=== PATIENT | female | born 1990 | race Caucasian/White ===

== ENCOUNTER 2016-12-26 21:38 | Emergency (ER) | payer OTHER ==
[2016-12-26] MEDS ORDERED: ONDANSETRON 4 MG TAB.RAPDIS PO ONE (23:23)
[2016-12-27 00:17] LABS: ABSOLUTE EOSINOPHILS # (AUTO) 0.1 10^3/uL (0.0-0.6); ABSOLUTE LYMPHOCYTES (AUTO) 2.6 10^3/uL (0.5-4.7); ABSOLUTE MONOCYTES (AUTO) 0.6 10^3/uL (0.1-1.4); ABSOLUTE NEUT (AUTO) 9.4 10^3/uL (1.7-8.2); APPEARANCE,URINE TURBID; BASOPHILS % (AUTO) 0.3 % (0-2); BILIRUBIN,URINE NEGATIVE (NEGATIVE); EOSINOPHILS % (AUTO) 1.1 % (0-6); GLUCOSE, URINE NEGATIVE (NEGATIVE); HEMATOCRIT 40.7 % (36.0-47.0); HEMOGLOBIN 14.1 g/dL (12.0-15.5); HGB HCT DIFFERENCE 1.6; KETONES,URINE 80 mg/dL (NEGATIVE); LEUKOCYTE ESTERASE,URINE MODERATE (NEGATIVE); LYMPHOCYTES % (AUTO) 20.2 % (13-45); MEAN CORPUSCULAR HEMOGLOBIN 30.5 pg (27.0-33.4); MEAN CORPUSCULAR HGB CONC 34.6 g/dL (32.0-36.0); MEAN CORPUSCULAR VOLUME 88 fl (80-97); NITRITE,URINE NEGATIVE (NEGATIVE); PROTEIN,URINE 100 mg/dL (NEGATIVE); RED BLOOD COUNT 4.62 10^6/uL (3.72-5.28); SEGMENTED NEUTROPHILS % (AUTO) 73.4 % (42-78); URINE SPECIFIC GRAVITY 1.028; UROBILINOGEN,URINE NEGATIVE mg/dL (<2.0); WHITE BLOOD COUNT 12.7 10^3/uL (4.0-10.5)
[2016-12-27 00:24] LABS: ALANINE AMINOTRANSFERASE 23 U/L (9-52); ALBUMIN 4.6 g/dL (3.5-5.0); ALKALINE PHOSPHATASE 66 U/L (38-126); ANION GAP 11 (5-19); ASPARTATE AMINO TRANSFERASE 19 U/L (14-36); BILIRUBIN,TOTAL 1.2 mg/dL (0.2-1.3); BLOOD UREA NITROGEN 7 mg/dL (7-20); CALCIUM 10.1 mg/dL (8.4-10.2); CARBON DIOXIDE 24 mmol/L (22-30); CHLORIDE 103 mmol/L (98-107); CREATININE RESULT 0.64 mg/dL (0.52-1.25); GLUCOSE 88 mg/dL (75-110); POTASSIUM 3.5 mmol/L (3.6-5.0); SODIUM 138.3 mmol/L (137-145); TOTAL PROTEIN 7.6 g/dL (6.3-8.2)
[2016-12-27] MEDS ORDERED: PROMETHAZINE HCL 25 MG TABLET PO ONE (04:42)
[2016-12-27] MEDS ORDERED: CEFTRIAXONE 1 GM/D5W RTU 50 ML IV ONE (04:44)
[2016-12-27] MEDS ORDERED: NORMAL SALINE 1000 ML 1,000 ML IV ONE (04:45)
[2016-12-27] MEDS ORDERED: DIPHENHYDRAMINE HCL 25 MG CAPSULE PO ONE (04:45)
--- NOTE | 2016-12-27 04:54 | ER Document Report ---
ED GI/ - General Chief Complaint: Nausea/Vomiting Stated Complaint: ABDOMINAL PAIN W/ Time seen by provider: 04:49 Mode of Arrival: Ambulatory Information source: Patient Notes: 26-year-old female presents to ED for pelvic pain 11 weeks with nausea and vomiting and headache. She states the nausea and vomiting is worse than her normal morning sickness the headache is typical of her migraines and she's had it for 3 days but has not taken anything for it. Her OB advised her not to take her Imitrex due to her patient states she is a high-risk and had a miscarriage in third trimester last time. Patient states she's also had a poor appetite has not been able to drink since Monday. She also states she has a thick white discharge but was tested for STDs and wet mount 2 weeks ago. Requesting a ultrasound and a test for her discharge today. Patient has a UTI according to the labs done before I saw the patient. TRAVEL OUTSIDE OF THE [place] IN LAST 30 DAYS: No - HPI Patient complains to provider of: Pelvic pain, , Vaginal discharge, Vomiting, Other - Headache Onset: Last week Timing/Duration: Gradual Quality of pain: Achy, Dull, Sharp Severity at maximum: Moderate Severity in ED: Moderate Pain Level: 4 Location: Pelvis Vaginal bleeding (Compared to normal period): None LMP: 11 weeks : 3 Para: 1 heart tones (bpm): 177 EDC: 07/21/17 OB ultrasound done: Yes vitamins taken: Yes Associated symptoms: Nausea, Odor, Vaginal discharge, Vomiting, Other - Pelvic pain Exacerbated by: Denies Relieved by: Denies Recently seen / treated by doctor: Yes - Related Data Allergies/Adverse Reactions: aspirin [Aspirin] Allergy (Verified 12/26/16 23:19) Anaphylaxis morphine [Morphine] Allergy (Verified 12/26/16 23:19) Anaphylaxis Past Medical History - General Information source: Patient - Social History Smoking Status: Never Smoker Cigarette use (# per day): No Chew tobacco use (# tins/day): No Smoking Education Provided: No Frequency of alcohol use: None Drug Abuse: None Lives with: Spouse/Significant other Family History: Reviewed & Not Pertinent Patient has suicidal ideation: No Patient has homicidal ideation: No - Past Medical History Cardiac Medical History: Reports: None Pulmonary Medical History: Reports: None EENT Medical History: Reports: None Neurological Medical History: Reports: Hx Migraine Endocrine Medical History: Reports: None Renal/ Medical History: Reports: None Malignancy Medical History: Reports: None GI Medical History: Reports: None Musculoskeltal Medical History: Reports None Skin Medical History: Reports None Psychiatric Medical History: Reports: None Traumatic Medical History: Reports: None Infectious Medical History: Reports: None Past Surgical History: Reports: Hx Orthopedic Surgery - right clavicle - Immunizations Immunizations up to date: Yes Hx Diphtheria, Pertussis, Tetanus Vaccination: Yes Review of Systems - Review of Systems Constitutional: No symptoms reported EENT: No symptoms reported Cardiovascular: No symptoms reported Respiratory: No symptoms reported Gastrointestinal: Nausea, Vomiting Genitourinary: No symptoms reported Female Genitourinary: , Vaginal discharge, Vaginal odor, Other - Pelvic pain Musculoskeletal: No symptoms reported Skin: No symptoms reported Hematologic/Lymphatic: No symptoms reported Neurological/Psychological: No symptoms reported -: Yes All other systems reviewed and negative Physical Exam - Vital signs Vitals: Temp Pulse Resp BP 97.9 F 88 18 98/66 L 12/26/16 22:55 12/26/16 22:55 12/26/16 22:55 12/26/16 22:55 Interpretation: Normal - General General appearance: Appears well, Alert - HEENT Head: Normocephalic, Atraumatic Eyes: Normal Pupils: PERRL Visual houser normal: Yes Ears: Normal External canal: Normal Tympanic membrane: Normal Sinus: Normal Nasal: Swelling, Clear rhinorrhea Mouth/Lips: Normal Mucous membranes: Normal Pharynx: Normal Neck: Normal - Respiratory Respiratory status: No respiratory distress Chest status: Nontender Breath sounds: Normal Chest palpation: Normal - Cardiovascular Rhythm: Regular Heart sounds: Normal auscultation Murmur: No - Abdominal Inspection: Normal Distension: No distension Bowel sounds: Normal Tenderness: Tender - Pelvic tenderness Organomegaly: No organomegaly - Genitourinary External exam: Normal Speculum exam: Cervix closed, Vaginal discharge Vaginal bleeding: None Bimanuel exam: Adnexal tenderness - Back Back: Normal, Nontender - Extremities General upper extremity: Normal inspection, Nontender, Normal color, Normal ROM , Normal temperature General lower extremity: Normal inspection, Nontender, Normal color, Normal ROM , Normal temperature, Normal weight bearing. No: Irma's sign - Neurological Neuro grossly intact: Yes Cognition: Normal Orientation: AAOx4 Edel Coma Scale Eye Opening: Spontaneous [place] Coma Scale Verbal: Oriented Edel Coma Scale Motor: Obeys Commands [place] Coma Scale Total: 15 Speech: Normal Motor strength normal: LUE, RUE, LLE, RLE Sensory: Normal - Psychological Associated symptoms: Normal affect, Normal mood - Skin Skin Temperature: Warm Skin Moisture: Dry Skin Color: Normal Course - Re-evaluation Re-evalutation: 12/27/16 09:04 Patient was treated with IV fluids and Rocephin 1 g IV and azithromycin and Flagyl. Her pelvic exam showed bacterial vaginosis and Chlamydia. Her first UA showed possible UTI so a repeat urine was done which did not show a UTI. Patient was discharged home with instructions to follow-up with OB Talia to ensure that her chlamydia cleared up. - Vital Signs Vital signs: Temp Pulse Resp BP Pulse Ox 97.5 F 84 18 125/87 H 97 12/27/16 07:01 12/27/16 07:01 12/27/16 07:01 12/27/16 07:01 12/27/16 07:01 - Laboratory Result Diagrams: 12/26/16 23:53 12/26/16 23:53 Laboratory results interpreted by me: 12/26/16 12/26/16 12/26/16 23:53 23:53 23:53 WBC 12.7 H Absolute Neutrophils 9.4 H Potassium 3.5 L Beta HCG, Quant Urine Protein 100 H Urine Ketones 80 H Ur Leukocyte Esterase MODERATE H Urine Ascorbic Acid 40 H Urine HCG, Qual POSITIVE H Chlamydia DNA (PCR) 12/26/16 12/27/16 12/27/16 23:53 05:05 05:05 WBC Absolute Neutrophils Potassium Beta HCG, Quant 30127.00 H Urine Protein 30 H Urine Ketones 80 H Ur Leukocyte Esterase Urine Ascorbic Acid 40 H Urine HCG, Qual Chlamydia DNA (PCR) DETECTED H Discharge - Discharge Clinical Impression: Pelvic pain affecting in first trimester, antepartum, Dehydration during , Chlamydia infection affecting in first trimester Migraine Qualifiers: Migraine type: unspecified Status migrainosus presence: without status migrainosus Intractability: not intractable Qualified Code(s): G43.909 - Migraine, unspecified, not intractable, without status migrainosus Condition: Stable Disposition: HOME, SELF-CARE Instructions: Pelvic Pain in ([facility]) Additional Instructions: HEADACHE: The physician does not feel that the headache you are experiencing has a serious underlying cause. Most headaches are due to emotional stress, with resultant muscle tension (tension headache). Occasionally, headaches are secondary to changes in the blood vessels of the scalp (vascular headache and migraine headache). Sometimes, a headache is the first symptom of another developing illness, such as a viral infection. You have no evidence of stroke, bleeding, meningitis, or other serious cause of your headache. The treatment of headaches varies with the severity and cause of the pain. Not all headaches need pain shots. In fact, there is evidence that using narcotics for headaches may make them worse in the long run. The physician will determine the therapy that's in your best interest. If you develop a fever, if the headache is different from any you've previously experienced, or if the headache progressively worsens, then call your physician at once or go to the emergency room. VAGINOSIS, BACTERIAL: Your exam shows you have bacterial vaginosis. This condition is due to an overgrowth of bacteria in the vagina. Symptoms may include vaginal itching or pain, a smelly discharge, and sometimes burning with urination. Normally this is not transmitted by sexual contact. Vaginosis can be treated with oral or topical antibiotics. Metronidazole ( Flagyl) pills are usually effective. Topical vaginal creams include Cleocin and Metro-Gel. You should avoid sexual contact until your symptoms are all better. Call the doctor if you develop pelvic pain, fever, or problems with urination, or if you don't improve as expected. Dehydration Dehydration can result from vomiting or diarrhea, fever, or decreased intake of fluids. If severe, hospitalization and intravenous fluids may be required. Most cases are treated at home with fluids by mouth. For the next 24 hours, drink lots of clear fluids. In mild cases, this can be soda pop or sports drinks. For more severe dehydration, the doctor may recommend special fluids such as Pedialyte or Lytren. Try to get three liters ( 3 quarts) of fluid per day. If vomiting occurs, continue to drink the fluids frequently (every 15 to 20 minutes), but in small amounts (one or two ounces). Depending on the type of dehydration, the doctor may prescribe antinausea medicine or potassium replacements. Call the doctor or return for re-examination if you become progressively weak, vomit repeatedly, or have other new symptoms. METRONIDAZOLE: Metronidazole (Flagyl) has been prescribed. This medication is used to kill a type of bacteria called anaerobes, and protozoan parasites such as trichomonas and Giardia. Flagyl often causes a metallic taste in the mouth and mild nausea. Do not use alcohol in any form with Flagyl (including alcohol in medication elixirs). Flagyl interacts with alcohol to cause flushing, palpitations, headache, stomach cramps, and vomiting. Do not use Flagyl if you are taking Antabuse (disulfiram). Call the doctor at once if you develop rash, shortness of breath, itching, or lightheadedness. USE OF DIPHENHYDRAMINE: Diphenhydramine (Benadryl) is an antihistamine and has been recommended to help treat your headache and to prevent side effects of other medications used to treat headaches. The medication can be repeated four times daily. Age Elixir (12.5 mg/tsp) 25 mg pill adult 1-2 tabs Antihistamines may cause drowsiness, especially with the first dose. Do not operate machinery or drive while under the effects of the medication. Do not combine the medication with alcohol, or with any other medication without talking to your doctor. Intravenous (IV) Fluids As part of your care today, you received intravenous (IV) fluids. IV fluids are administered to patients who are dehydrated or to those who have certain chemical (electrolyte) abnormalities that need correcting. ANTINAUSEA MEDICATION: You have been given a medication to suppress nausea and vomiting. This type of medication can be given as a shot, pill, or suppository. It will usually last for many hours. Pills and shots usually last six to eight hours, suppositories last about 12 hours. For the typical illness, only one or two doses of the medication may be necessary. Mild lightheadedness may occur. This type of medicine can cause drowsiness. Do not drive or operate dangerous machinery while under its influence. Do not mix with alcohol. See your doctor at once if you have muscle spasms or tightness, or uncontrollable motions (particularly of the neck, mouth, or jaw). Persistent vomiting or severe lightheadedness should also be evaluated by the physician. Acetaminophen Acetaminophen may be taken for pain relief or fever control. It's much safer than aspirin, offering a wider range of "safe" dosages. It is safe during . Some brand names are Tylenol, Panadol, Datril, Anacin 3, Tempra, and Liquiprin. Acetaminophen can be repeated every four hours. The following are maximum recommended dosages: WEIGHT Dose Drops Elixir Chewable( 80mg) (LBS.) drprs=droppers tsp=teaspoon 6 40 mg .4 ml (1/2) 6-11 80 mg .8 ml (full) 1/2 tsp 1 tab 12-16 120 mg 1 1/2 drprs 3/4 tsp 1 1/2 tabs 17-23 160 mg 2 drprs 1 tsp 2 tabs 24-30 240 mg 3 drprs 1 1/2 tsp 3 tabs 30-35 320 mg 2 tsp 4 tabs 36-41 360 mg 2 1/4 tsp 4 1 /2 tabs 42-47 400 mg 2 1/2 tsp 5 tabs 48-53 480 mg 3 tsp 6 tabs 54-59 520 mg 3 1/4 tsp 6 1 /2 tabs 60-64 560 mg 3 1/2 tsp 7 tabs 65-70 600 mg 3 3/4 tsp 7 1 /2 tabs 71-76 640 mg 4 tsp 8 tabs 77-82 720 mg 4 1/2 tsp 9 tabs 83-88 800 mg 5 tsp 10 tabs >89 pounds or adults 650 mg to 900 mg Acetaminophen can be repeated every four hours. Maximum daily dose not to exceed 4000 mg. These maximum recommended dosages are slightly higher than the dosages written on the product container, but these dosages are very safe and well below the toxic dosage for acetaminophen. FOLLOW-UP CARE: If you have been referred to a physician for follow-up care, call the physician s office for an appointment as you were instructed or within the next two days. If you experience worsening or a significant change in your symptoms, notify the physician immediately or return to the Emergency Department at any time for re-evaluation. Prescriptions: Metronidazole [Flagyl 500 mg Tablet] 500 mg PO BID #14 tablet
[2016-12-27 05:52] LABS: APPEARANCE,URINE SLIGHTLY-CLOUDY; BILIRUBIN,URINE NEGATIVE (NEGATIVE); GLUCOSE, URINE NEGATIVE (NEGATIVE); KETONES,URINE 80 mg/dL (NEGATIVE); LEUKOCYTE ESTERASE,URINE NEGATIVE (NEGATIVE); NITRITE,URINE NEGATIVE (NEGATIVE); PROTEIN,URINE 30 mg/dL (NEGATIVE); URINE SPECIFIC GRAVITY 1.031; UROBILINOGEN,URINE NEGATIVE mg/dL (<2.0)
[2016-12-27] MEDS ORDERED: PYRIDOXINE HCL INJ 100 MG/1 ML VIAL IM ONE (06:12)
[2016-12-27] MEDS ORDERED: METRONIDAZOLE 500 MG TABLET PO ONE (06:36)
[2016-12-27] MEDS ORDERED: PYRIDOXINE HCL INJ 100 MG/1 ML VIAL ONE (06:48)
[2016-12-27 06:55] LABS: CHLAM PCR DETECTED (NOT DETECT)
[2016-12-27 07:02] VITALS: BP 125/87
[2016-12-27] MEDS ORDERED: AZITHROMYCIN 250 MG TABLET PO ONE (07:06)
== END 2016-12-27 07:02 | disposition home or self-care (01) ==
LOC: ER 21:38
DX: O26.91 Pregnancy related conditions, unspecified, first trimester (principal); G43.909 Migraine, unspecified, not intractable, without status migrainosus; O98.811 Other maternal infectious and parasitic diseases complicating pregnancy, first trimester; E86.0 Dehydration; Z3A.11 11 weeks gestation of pregnancy; Z88.6 Allergy status to analgesic agent
CPT/HCPCS: 99284; 96372; 96365; 36415; 87086; 87210; 84702; 85025; 81025; 87088; 80053; 81001; 87491; 87591; 76801; S0119; J3415; J0696

== ENCOUNTER 2017-02-08 11:16 | Emergency (ER) | payer OTHER ==
--- NOTE | 2017-02-08 12:13 | ER Document Report ---
ED Medical Screen (RME) - General Chief Complaint: Vaginal Bleeding Stated Complaint: VAGINAL BLEEDING Notes: This 26-year-old female who is and Rh- is presently 17 weeks . During the night she started some vaginal bleeding. She has suprapubic and infra-umbilical discomfort. She has been admitted for hyperemesis in the past and had similar discomfort at that time with all the vomiting. She has not had a Rho-jaspal injection for this yet. I have greeted and performed a rapid initial assessment of this patient. A comprehensive ED assessment and evaluation of the patient, analysis of test results and completion of the medical decision making process will be conducted by additional ED providers. TRAVEL OUTSIDE OF THE [place] IN LAST 30 DAYS: No - Related Data Allergies/Adverse Reactions: aspirin [Aspirin] Allergy (Verified 02/08/17 11:36) Anaphylaxis morphine [Morphine] Allergy (Verified 02/08/17 11:36) Anaphylaxis Home Medications: Current Home Medications Vit/Iron Fumarate/FA [ Tablet] 1 each PO DAILY 02/08/17 [ History] Past Medical History - General Last Menstrual Period: oct 07 - Past Medical History Cardiac Medical History: Denies: Hx Coronary Artery Disease, Hx Heart Attack, Hx Hypertension Pulmonary Medical History: Denies: Hx Asthma, Hx Bronchitis, Hx COPD, Hx Pneumonia Neurological Medical History: Reports: Hx Migraine. Denies: Hx Cerebrovascular Accident, Hx Seizures Renal/ Medical History: Denies: Hx Peritoneal Dialysis Musculoskeltal Medical History: Denies Hx Arthritis Past Surgical History: Reports: Hx Orthopedic Surgery - right clavicle. Denies : Hx Hysterectomy - Immunizations Immunizations up to date: Yes Hx Diphtheria, Pertussis, Tetanus Vaccination: Yes Physical Exam - Vital signs Vitals: Temp Pulse Resp BP Pulse Ox 97.5 F 78 16 108/62 100 02/08/17 11:38 02/08/17 11:38 02/08/17 11:38 02/08/17 11:38 02/08/17 11:38 Course - Vital Signs Vital signs: Temp Pulse Resp BP Pulse Ox 97.5 F 78 16 108/62 100 02/08/17 11:38 02/08/17 11:38 02/08/17 11:38 02/08/17 11:38 02/08/17 11:38
[2017-02-08 12:49] LABS: ABSOLUTE LYMPHOCYTES (AUTO) 1.2 10^3/uL (0.5-4.7); ABSOLUTE MONOCYTES (AUTO) 0.5 10^3/uL (0.1-1.4); ABSOLUTE NEUT (AUTO) 10.1 10^3/uL (1.7-8.2); BASOPHILS % (AUTO) 0.2 % (0-2); EOSINOPHILS % (AUTO) 0.4 % (0-6); HEMATOCRIT 36.9 % (36.0-47.0); HEMOGLOBIN 13.2 g/dL (12.0-15.5); HGB HCT DIFFERENCE 2.7; LYMPHOCYTES % (AUTO) 10.1 % (13-45); MEAN CORPUSCULAR HEMOGLOBIN 31.4 pg (27.0-33.4); MEAN CORPUSCULAR HGB CONC 35.7 g/dL (32.0-36.0); MEAN CORPUSCULAR VOLUME 88 fl (80-97); MONOCYTES % (AUTO) 4.1 % (3-13); RED BLOOD COUNT 4.19 10^6/uL (3.72-5.28); RED CELL DISTRIBUTION WIDTH 12.8 % (11.5-14.0); SEGMENTED NEUTROPHILS % (AUTO) 85.2 % (42-78); WHITE BLOOD COUNT 11.8 10^3/uL (4.0-10.5)
[2017-02-08 13:02] LABS: ALANINE AMINOTRANSFERASE 19 U/L (9-52); ALBUMIN 4.1 g/dL (3.5-5.0); ALKALINE PHOSPHATASE 67 U/L (38-126); ANION GAP 9 (5-19); ASPARTATE AMINO TRANSFERASE 19 U/L (14-36); BILIRUBIN,DIRECT 0.1 mg/dL (0.0-0.4); BLOOD UREA NITROGEN 7 mg/dL (7-20); CALCIUM 9.3 mg/dL (8.4-10.2); CARBON DIOXIDE 24 mmol/L (22-30); CHLORIDE 105 mmol/L (98-107); CREATININE RESULT 0.51 mg/dL (0.52-1.25); GLUCOSE 77 mg/dL (75-110); POTASSIUM 4.3 mmol/L (3.6-5.0); SODIUM 137.9 mmol/L (137-145)
--- NOTE | 2017-02-08 14:50 | ER Document Report ---
ED GI/ - General Chief Complaint: Vaginal Bleeding Stated Complaint: VAGINAL BLEEDING Information source: Patient TRAVEL OUTSIDE OF THE [place] IN LAST 30 DAYS: No - HPI Patient complains to provider of: , Vaginal bleeding Onset: This morning Severity at maximum: Moderate Notes: 02/08/17 14:45 Patient arrives with complaints of vaginal bleeding. The patient is a WITH 1 prior miscarriage. She is approximately 17 weeks . She is at this morning she woke up and noticed she was having vaginal bleeding and lower abdominal cramping. She denies any fevers. She denies any nausea vomiting or diarrhea. No injury. No dysuria or hematuria. She called her HAND TWISTER who directed her to the emergency department. She tells her she's had an ultrasound in the past at her OBs office which was unremarkable. She is O- blood type. She has had have RhoGAM in the past with prior miscarriage. She denies any chest pain, shortness of breath, numbness tingling weakness, no other complaints at this time. - Related Data Allergies/Adverse Reactions: aspirin [Aspirin] Allergy (Verified 02/08/17 11:36) Anaphylaxis morphine [Morphine] Allergy (Verified 02/08/17 11:36) Anaphylaxis Home Medications: Current Home Medications Vit/Iron Fumarate/FA [ Tablet] 1 each PO DAILY 02/08/17 [ History] Past Medical History - General Last Menstrual Period: oct 07 - Social History Smoking Status: Never Smoker Chew tobacco use (# tins/day): No Frequency of alcohol use: None Drug Abuse: None Family History: Reviewed & Not Pertinent Patient has suicidal ideation: No Patient has homicidal ideation: No - Past Medical History Cardiac Medical History: Denies: Hx Coronary Artery Disease, Hx Heart Attack, Hx Hypertension Pulmonary Medical History: Denies: Hx Asthma, Hx Bronchitis, Hx COPD, Hx Pneumonia Neurological Medical History: Reports: Hx Migraine. Denies: Hx Cerebrovascular Accident, Hx Seizures Renal/ Medical History: Denies: Hx Peritoneal Dialysis Musculoskeltal Medical History: Denies Hx Arthritis Past Surgical History: Reports: Hx Orthopedic Surgery - right clavicle. Denies : Hx Hysterectomy - Immunizations Immunizations up to date: Yes Hx Diphtheria, Pertussis, Tetanus Vaccination: Yes Review of Systems - Review of Systems -: Yes All other systems reviewed and negative Physical Exam - Vital signs Vitals: Temp Pulse Resp BP Pulse Ox 97.5 F 78 16 108/62 100 02/08/17 11:38 02/08/17 11:38 02/08/17 11:38 02/08/17 11:38 02/08/17 11:38 - General General appearance: Appears well, Alert - HEENT Head: Normocephalic, Atraumatic Eyes: Normal Pupils: PERRL Mouth/Lips: Normal Mucous membranes: Normal - Respiratory Respiratory status: No respiratory distress Breath sounds: Normal - Cardiovascular Rhythm: Regular Heart sounds: Normal auscultation Murmur: No - Abdominal Inspection: Gravid female Bowel sounds: Normal Tenderness: Tender - Lower abdomen. No: McBurney's point, Guarding, Rebound - Genitourinary External exam: Normal. No: Vesicles Speculum exam: Normal, Cervix closed. No: Vaginal discharge, Lesions, Products of conception, Vaginal lacerations Vaginal bleeding: None Bimanuel exam: Normal, Uterus enlarged - Back Back: Normal, Nontender. No: CVA tenderness - Extremities General upper extremity: Normal inspection, Nontender, Normal color, Normal ROM , Normal temperature General lower extremity: Normal inspection, Nontender, Normal color, Normal ROM , Normal temperature, Normal weight bearing. No: Irma's sign - Neurological Neuro grossly intact: Yes Cognition: Normal Orientation: AAOx4 [place] Coma Scale Eye Opening: Spontaneous [place] Coma Scale Verbal: Oriented [place] Coma Scale Motor: Obeys Commands [place] Coma Scale Total: 15 Speech: Normal Motor strength normal: LUE, RUE, LLE, RLE Sensory: Normal - Psychological Associated symptoms: Normal affect, Normal mood - Skin Skin Temperature: Warm Skin Moisture: Dry Skin Color: Normal Course - Re-evaluation Re-evalutation: 02/08/17 14:48 Patient's nontoxic. Stable vitals. The patient is approximately 17 weeks . This is her third , she's had one prior miscarriage. Patient states she did have some vaginal bleeding this morning. With associated lower abdominal cramping. Bleeding has since improved. Her pelvic exam shows no active bleeding and no old blood within the vaginal vault. No signs of infection. Lab work is unremarkable. She is O-, and will be given RhoGAM. Ultrasound shows a 16 week 3 day living without complication. The patient's vitals are stable. Patient will be discharged home at this time with instruction to take Tylenol as needed for pain. Follow- up with her HAND TWISTER at the next label point appeared full sooner for increased pain, fever, persistent vomiting, severe bleeding, or any further concerns. The patient's emergency department workup and current diagnosis were explained to the patient and or family. Follow-up instructions were provided. Medications if prescribed were discussed. Instructions for when to return to the emergency department including specific worrisome symptoms were discussed with the patient and/or family. - Vital Signs Vital signs: Temp Pulse Resp BP Pulse Ox 97.5 F 78 16 108/62 100 02/08/17 11:38 02/08/17 11:38 02/08/17 11:38 02/08/17 11:38 02/08/17 11:38 - Laboratory Result Diagrams: 02/08/17 12:28 02/08/17 12:28 Laboratory results interpreted by me: 02/08/17 02/08/17 02/08/17 12:28 12:28 12:28 WBC 11.8 H Seg Neutrophils % 85.2 H Lymphocytes % 10.1 L Absolute Neutrophils 10.1 H Creatinine 0.51 L Beta HCG, Quant 21634.00 H - Diagnostic Test Radiology reviewed: Image reviewed, Reports reviewed - Ultrasound shows a 16 week 3 day living intrauterine Discharge - Discharge Clinical Impression: Threatened miscarriage Condition: Stable Disposition: HOME, SELF-CARE Instructions: Rhogam ([facility]), Threatened Miscarriage ([facility]) Additional Instructions: Tylenol as needed for pain. Follow-up with your HAND TWISTER at the next available appointment. Follow-up sooner for increased pain, fever, persistent vomiting, severe bleeding, or any further concerns.
[2017-02-08 15:15] VITALS: BP 103/54
== END 2017-02-08 15:18 | disposition home or self-care (01) ==
LOC: ER 11:16
DX: O20.0 Threatened abortion (principal); O36.0920 Maternal care for other rhesus isoimmunization, second trimester, not applicable or unspecified; O26.892 Other specified pregnancy related conditions, second trimester; R10.30 Lower abdominal pain, unspecified; Z3A.16 16 weeks gestation of pregnancy; Z87.59 Personal history of other complications of pregnancy, childbirth and the puerperium; Z87.892 Personal history of anaphylaxis; Z88.6 Allergy status to analgesic agent; Z88.5 Allergy status to narcotic agent
CPT/HCPCS: 99284; 86900; 86901; 36415; 86850; 84702; 85025; 80053; 76805; J2790

== ENCOUNTER 2017-05-09 16:11 | Emergency (ER) | payer OTHER ==
[2017-05-09] MEDS ORDERED: PREDNISONE 20 MG TABLET PO ONE (16:28)
[2017-05-09] MEDS ORDERED: DIPHENHYDRAMINE HCL 50 MG CAPSULE PO ONE (16:28)
--- NOTE | 2017-05-09 16:34 | ER Document Report ---
ED Allergic Reaction - General Chief Complaint: Allergic Reaction Stated Complaint: POSSIBLE BUG BITE/ALLERGIC REACTION Time Seen by Provider: 05/09/17 16:28 Notes: Patient is a 26-year-old female who presents with right ankle swelling, pain and pruritus that started yesterday after she thinks she was bitten by an insect. She does not remember seeing the insect. She also began to feel throat scratchiness earlier today, but this has resolved. She says her BP is usually in the 90's/60's. She denies shortness of breath, hives, nausea, vomiting, stridor, difficulty swallowing, tongue swelling, fevers or calf tenderness. TRAVEL OUTSIDE OF THE [place] IN LAST 30 DAYS: No - Related Data Allergies/Adverse Reactions: aspirin [Aspirin] Allergy (Verified 02/08/17 11:36) Anaphylaxis morphine [Morphine] Allergy (Verified 02/08/17 11:36) Anaphylaxis Past Medical History - General Information source: Patient - Social History Smoking Status: Never Smoker Family History: Reviewed & Not Pertinent Patient has suicidal ideation: No Patient has homicidal ideation: No - Past Medical History Cardiac Medical History: Denies: Hx Coronary Artery Disease, Hx Heart Attack, Hx Hypertension Pulmonary Medical History: Denies: Hx Asthma, Hx Bronchitis, Hx COPD, Hx Pneumonia Neurological Medical History: Reports: Hx Migraine. Denies: Hx Cerebrovascular Accident, Hx Seizures Renal/ Medical History: Denies: Hx Peritoneal Dialysis Musculoskeltal Medical History: Denies Hx Arthritis Past Surgical History: Reports: Hx Orthopedic Surgery - right clavicle. Denies : Hx Hysterectomy - Immunizations Immunizations up to date: Yes Hx Diphtheria, Pertussis, Tetanus Vaccination: Yes Review of Systems - Review of Systems Notes: REVIEW OF SYSTEMS: CONSTITUTIONAL: -fevers, -chills EENT: -eye pain, -difficulty swallowing, -nasal congestion CARDIOVASCULAR:-chest pain, -syncope. RESPIRATORY: -cough, -SOB GASTROINTESTINAL: -abdominal pain, - nausea, -vomiting, -diarrhea GENITOURINARY: -dysuria, -hematuria MUSCULOSKELETAL: -back pain, -neck pain SKIN: +right ankle redness and swelling HEMATOLOGIC: -easy bruising or bleeding. LYMPHATIC: -swollen, enlarged glands. NEUROLOGICAL: -altered mental status or loss of consciousness, -headache, - neurologic symptoms PSYCHIATRIC: -anxiety, -depression. ALL OTHER SYSTEMS REVIEWED AND NEGATIVE. Physical Exam - Vital signs Vitals: Temp Pulse BP Pulse Ox 97.5 F 79 88/72 L 100 05/09/17 16:22 05/09/17 16:22 05/09/17 16:22 05/09/17 16:22 - Notes Notes: PHYSICAL EXAMINATION: GENERAL: Well-appearing, well-nourished and in no acute distress. HEAD: Atraumatic, normocephalic. EYES: Pupils equal round and reactive to light, extraocular movements intact, sclera anicteric, conjunctiva are normal. ENT: nares patent, oropharynx clear without exudates. Moist mucous membranes. NECK: Normal range of motion, supple without lymphadenopathy. No stridor. LUNGS: Breath sounds clear to auscultation bilaterally and equal. No wheezes rales or rhonchi. HEART: Regular rate and rhythm without murmurs ABDOMEN: Soft, nontender, normoactive bowel sounds. No guarding, no rebound. No masses appreciated. EXTREMITIES: Normal range of motion, no pitting or edema. No cyanosis. NEUROLOGICAL: Cranial nerves grossly intact. Normal speech, normal gait. Normal sensory and motor exams. PSYCH: Normal mood, normal affect. SKIN: Right lateral ankle with mild erythema and a small vesicle Course - Re-evaluation Re-evalutation: Patient appears well without any signs of anaphylaxis at this time. Unclear whether this is a localized allergic reaction or any early cellulitis. Will treat with doxycycline and Benadryl. After antihistamine and steroid, swelling has decreased. Instructed her to continue antihistamines for local allergic reaction from insect bite. This does not appear consistent with a black or brown recluse spider bite. BP improved to 114/76 after po fluids. Given strict return precautions and she understands. - Vital Signs Vital signs: Temp Pulse Resp BP Pulse Ox 97.5 F 79 88/72 L 100 05/09/17 16:22 05/09/17 16:22 05/09/17 16:22 05/09/17 16:22 Discharge - Discharge Clinical Impression: Rash Condition: Stable Disposition: HOME, SELF-CARE Additional Instructions: Take the full course of doxycycline in case this is a skin infection from an animal bite. You may take Benadryl to help with any itchiness. Return to the ER if you have worsening symptoms or any other concerns. ACUTE ALLERGIC REACTION: Your symptoms are due to an allergic reaction. Allergy can cause hives, swelling of the hands, feet, and face, hoarseness, and difficulty swallowing or breathing. It may be due to exposure to medication, animal dander, foods, infection, or insect bites. Medication is a common cause, even when prior use of this same medication caused no problems. Acute treatment may include adrenalin and antihistamines. Usually, the specific allergic agent can't be identified unless repeated episodes occur. Home treatment includes the following: (1) Stop any suspicious medications. This will be discussed with you. (2) Oral antihistamines for the next four to five days. Example, diphenhydramine (Benadryl) every four hours. (3) You may also use cimetidine (Tagamet), ranitidine (Zantac), or famotidine ( Pepcid) every four hours if diphenhydramine is not controlling itching and hives. (4) Avoid aspirin until the hives completely disappear. (5) Avoid hot baths or showers until the hives are completely gone. Call the doctor if faintness, difficulty swallowing, tightness in the chest , or wheezing occurs. STEROID MEDICATION: You have been given a medicine of the cortisone/steroid class. This medication is used to control inflammation or allergy. It is usually only given for a short period of time, until the acute process subsides. There are usually no side effects from short-term use of cortisone-like medications. Some persons feel an increased sense of well-being and are not sleepy at bedtime. Long-term use of cortisone medications is best avoided, unless required for a severe condition. If your condition does not remit, or relapses after the course of corticosteroid medication, you should consult your physician. ANTIHISTAMINES: An antihistamine has been given and/or prescribed to control your symptoms. Antihistamines are used for many reasons, including itching, watering eyes, runny nose, allergic swelling, hives, and insect stings. Antihistamines may cause drowsiness, especially with the first dose. Do not operate machinery or drive while under the effects of the medication. Other common side effects include dry mouth and eyes. In older persons, antihistamines can occasionally cause urinary retention, constipation, and trouble focusing the eyes. Do not combine the medication with alcohol, or with any other medication without talking to your doctor. USE OF DIPHENHYDRAMINE: The use of diphenhydramine (Benadryl) has been recommended to control allergic symptoms. The 25 mg strength is available over- the-counter, as well as the elixir. This antihistamine is used for many symptoms. It's useful for itching, watering eyes and nose, allergic swelling, hives, and insect stings. The medication can be repeated four times daily. Age Elixir (12.5 mg/tsp) 25 mg pill 2-3 yr 1/2 tsp 4-8 yr 1 tsp 9-14 yr 2 tsp one tab adult 1-2 tabs Antihistamines may cause drowsiness, especially with the first dose. Do not operate machinery or drive while under the effects of the medication. Do not combine the medication with alcohol, or with any other medication without talking to your doctor. FOLLOW-UP CARE: If you have been referred to a physician for follow-up care, call the physician s office for an appointment as you were instructed or within the next two days. If you experience worsening or a significant change in your symptoms, notify the physician immediately or return to the Emergency Department at any time for re-evaluation. CELLULITIS: You have an infection of your skin and underlying soft tissues called cellulitis. This is due to bacteria, which can enter through any break in the skin, or even through an irritated hair follicle. Untreated, cellulitis will usually worsen. Antibiotics are required. Usually, warm packs or warm soaks, and elevation of the infected area are recommended. You should start getting better within 24 to 36 hours. Most infections respond quickly to the right medication. Follow-up care is important, however, to check for abscess (boil) formation, unsuspected foreign body, or resistant infection. If you develop fever, chills, or if the area of infection is becoming rapidly more swollen or painful, call the doctor at once. ANTIBIOTIC THERAPY: You have been given an antibiotic prescription. It's important that you take all the medication, unless instructed otherwise by your physician. Failure to complete the entire course can result in relapse of your condition. Common side effects of antibiotics include nausea, intestinal cramping, or diarrhea. Women may develop vaginal yeast infections, and babies can get yeast (thrush) in the mouth following the use of antibiotics. Contact your physician if you develop significant side effects from this medication. Allergy to this antibiotic can result in hives, wheezing, faintness, or itching. If symptoms of allergy occur, stop the medication and call the doctor. DOXYCYCLINE: Doxycycline (Vibramycin, Doryx) is an antibiotic of the tetracycline family. This type of drug is useful for infections of the respiratory tract and genital tract, and is sometimes used for intestinal infections. Unlike most tetracyclines, doxycycline can be taken with food. It is longer acting, and (usually) less prone to side effects than regular tetracycline. Tetracycline antibiotics can stain immature teeth and SHOULD NOT BE TAKEN BY CHILDREN, NURSING MOTHERS, OR WOMEN. Tetracyclines can make you more prone to sunburn. Abdominal cramping, nausea, and diarrhea are occasional side effects. Women may experience vaginal yeast infections. Call the doctor at once if you develop hives, itching, shortness of breath , or lightheadedness. FOLLOW-UP CARE: If you have been referred to a physician for follow-up care, call the physician s office for an appointment as you were instructed or within the next two days. If you experience worsening or a significant change in your symptoms, notify the physician immediately or return to the Emergency Department at any time for re-evaluation. Prescriptions: Doxycycline Hyclate 100 mg PO BID #14 capsule
[2017-05-09] MEDS ORDERED: IBUPROFEN 600 MG TABLET PO ONE (16:55)
[2017-05-09] MEDS ORDERED: DOXYCYCLINE HYCLATE 100 MG TABLET PO ONE (16:56)
[2017-05-09 17:36] VITALS: BP 114/73
== END 2017-05-09 17:20 | disposition home or self-care (01) ==
LOC: ER 16:11
DX: R21 Rash and other nonspecific skin eruption (principal); L29.8 Other pruritus; M25.471 Effusion, right ankle; M25.571 Pain in right ankle and joints of right foot; Z87.892 Personal history of anaphylaxis; Z88.6 Allergy status to analgesic agent; Z88.5 Allergy status to narcotic agent
CPT/HCPCS: 99283; J7512

== ENCOUNTER → 2017-12-11 | Day surgery (SDC) | payer OTHER ==
--- NOTE | 2017-12-11 14:59 | RADIOLOGY REPORT (SQ) ---
EXAM DESCRIPTION: ARTHRO WRIST INJECTION COMPLETED DATE/TIME: 12/11/2017 1:59 pm REASON FOR STUDY: S62.301A UNSP FRACTURE OF SECOND METACARPAL BONE, LEFT HAND, INITS62.303S S62.301A UNSP FRACTURE OF SECOND METACARPAL BONE, LEFT HAND, S62.303S UNSP FRACTURE OF THIRD METACARPAL BON E, LEFT HAND, COMPARISON: None. FLUOROSCOPY TIME: 33 seconds 2 digital fluoro images saved to PACS. LIMITATIONS: None. PROCEDURE: Procedure, risks, benefits and alternatives explained to patient who then gave written co nsent. The posterior left wrist was marked and a time-out was called for correct marking verification . Radiocarpal site marked using fluoroscopic guidance. Wrist prepped and draped using sterile techn ique. Local anesthesia achieved using 1.0 mL of 1% lidocaine injection. 25 gauge needle introduced into the joint space under direct fluoroscopic visualization. Non-ionic contrast instilled to confirm intra-articular position. Dilute gadolinium solution then injected. Needle removed and entry site c overed with sterile bandage. No immediate complications noted. TECHNIQUE: Digital images acquired during fluoroscopy and stored on PACS. Patient immediately take n to the MR suite for additional imaging. INJECTION LOCATION: Left radioscaphoid joint CONTRAST TYPE AND AMOUNT: 0.5 mL of Isovue-300 was injected to confirm intra-articular needle placeme nt followed by 2 mL of dilute ProHance gadolinium for MR arthrogram IMPRESSION: SUCCESSFUL NEEDLE PLACEMENT AND INJECTION FOR LEFT WRIST MR ARTHROGRAM. COMMENT: Quality ID #[id number]: Final reports for procedures using fluoroscopy that document radiation exp osure indices, or exposure time and number of fluorographic images (if radiation exposure indices are not available) TECHNICAL DOCUMENTATION: JOB ID: [id number] [employer]- All Rights Reserved
--- NOTE | 2017-12-11 15:37 | RADIOLOGY REPORT (SQ) ---
EXAM DESCRIPTION: MRI LT UPPER JOINT WITH COMPLETED DATE/TIME: 12/11/2017 2:11 pm REASON FOR STUDY: S62.301A UNSP FRACTURE OF SECOND METACARPAL BONE, LEFT HAND, INIT S62.303S S62.301 A UNSP FRACTURE OF SECOND METACARPAL BONE, LEFT HAND, S62.303S UNSP FRACTURE OF THIRD METACARPAL RISHABH NE, LEFT HAND, COMPARISON: Left hand films 09/02/2016 TECHNIQUE: Left wrist post-arthrogram imaging includes T1 and T1 and T2 fat sat sequences. LIMITATIONS: None. FINDINGS: JOINT DISTENSION: Adequate. No loose body. BONE MARROW: No alteration of signal to suggest marrow replacement or edema. No occult fracture. No l arge osteophytes. CARPAL ALIGNMENT AND ARTICULATION: Normal congruity of sigmoid notch at level of distal ruj without p ositive or negative ulnar variance. Normal capitolunate angle. No widening of scapholunate articulati on. SCAPHOLUNATE LIGAMENT: Without tear. No contrast in middle carpal compartment. LUNATO-TRIQUETRAL LIGAMENT: Without tear. No contrast in middle carpal compartment. TFC COMPLEX: radial and ulnar attachments normal. Meniscus intact. Extensor carpi ulnaris tendon norm al without tendinopathy. No contrast in distal RUJ. EXTRINSIC LIGAMENTS AND DISTAL RADIO-ULNAR JOINT: Dorsal and volar distal RUJ ligaments intact withou t subluxation of the distal ulna with respect to the radius. 1-6 EXTENSOR COMPARTMENTS: Normal. Specifically no tendinopathy of the abductor pollicis longus or ex tensor pollicis brevis to suggest de Quervains syndrome. CARPAL TUNNEL AND MEDIAN NERVE: Normal volume and morphology of carpal tunnel proximal at the level o f the radiocarpal joint and distally at the hook of the hamate. No thickening or signal alteration of median nerve. OTHER: No other significant finding. IMPRESSION: NORMAL MRI ARTHROGRAM OF THE WRIST. TECHNICAL DOCUMENTATION: JOB ID: [id number] [employer]- All Rights Reserved
== END ==
LOC: RAD 12:38
PROVIDERS: ATTEND Orthopaedic Surgery
DX: S62.301A Unspecified fracture of second metacarpal bone, left hand, initial encounter for closed fracture (principal); S62.303 Unspecified fracture of third metacarpal bone, left hand; X58.XXXA Exposure to other specified factors, initial encounter
CPT/HCPCS: 73222; 25246; 77002; A9576

== ENCOUNTER 2018-01-20 22:11 | Emergency (ER) | payer OTHER ==
[2018-01-20 22:37] VITALS: BP 115/73
[2018-01-20] MEDS ORDERED: HYDROCODONE/ACETAMINOPHEN 5-325 MG TABLET PO ONE (23:52)
[2018-01-20] MEDS ORDERED: ONDANSETRON 4 MG TAB.RAPDIS PO ONE (23:54)
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
[2018-01-21] MEDS ORDERED: METOCLOPRAMIDE HCL INJ/PF 10 MG/2 ML SDV IM ONE (01:38)
[2018-01-21] MEDS ORDERED: DIPHENHYDRAMINE HCL 50 MG/ML VIAL IM ONE (01:38)
== END 2018-01-21 03:30 | disposition home or self-care (01) ==
LOC: ER 22:11
DX: S06.0X0A Concussion without loss of consciousness, initial encounter (principal); H53.149 Visual discomfort, unspecified; R11.0 Nausea; Y04.2XXA Assault by strike against or bumped into by another person, initial encounter; Y99.0 Civilian activity done for income or pay; Z88.6 Allergy status to analgesic agent
CPT/HCPCS: 99283; 96372; J1200; S0119; J2765

== ENCOUNTER 2018-04-20 09:52 | Emergency (ER) | payer OTHER ==
[2018-04-20] MEDS ORDERED: DIPHENHYDRAMINE HCL 50 MG/ML VIAL IV ONE (10:51)
[2018-04-20] MEDS ORDERED: METOCLOPRAMIDE HCL INJ/PF 10 MG/2 ML SDV IV ONE (10:51)
[2018-04-20] MEDS ORDERED: RINGERS SOLUTION,LACTATED 1,000 ML IV ONE (10:52)
--- NOTE | 2018-04-20 10:54 | ER Document Report ---
ED Medical Screen (RME) - General Chief Complaint: Abdominal Pain Stated Complaint: ABDOMINAL PAIN, HEADACHE Time Seen by Provider: 04/20/18 10:51 Notes: RAPID MEDICAL EVALUATION DISCLOSURE I have seen this patient as part of a Rapid Medical Evaluation and, if applicable, placed any initially appropriate orders. The patient will be seen and fully evaluated, including a full history and physical exam, by a provider ( in Main ED or Fast Track) when a room becomes available. 27-year-old female PMH migraines and now approximately 8 weeks gestation here with complaints of migraine headache with photophobia nausea vomiting ongoing for the past 2 days. 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 Also over the past 2 days, she has had lower abdominal pains without dysuria frequency vaginal bleeding/discharge. EXAM Mild to moderate lower quadrant TTP No peritoneal signs TRAVEL OUTSIDE OF THE [place] IN LAST 30 DAYS: No - Related Data Allergies/Adverse Reactions: aspirin [Aspirin] Allergy (Verified 04/20/18 09:52) Anaphylaxis morphine [Morphine] Allergy (Verified 04/20/18 09:52) Anaphylaxis Past Medical History - Social History Frequency of alcohol use: Social Drug Abuse: None - Past Medical History Cardiac Medical History: Denies: Hx Coronary Artery Disease, Hx Heart Attack, Hx Hypertension Pulmonary Medical History: Denies: Hx Asthma, Hx Bronchitis, Hx COPD, Hx Pneumonia Neurological Medical History: Reports: Hx Migraine. Denies: Hx Cerebrovascular Accident, Hx Seizures Renal/ Medical History: Denies: Hx Peritoneal Dialysis Musculoskeltal Medical History: Denies Hx Arthritis Past Surgical History: Reports: Hx Orthopedic Surgery - right clavicle. Denies : Hx Hysterectomy - Immunizations Immunizations up to date: Yes Hx Diphtheria, Pertussis, Tetanus Vaccination: Yes Physical Exam - Vital signs Vitals: Temp Pulse Resp BP Pulse Ox 98.5 F 87 18 112/64 100 04/20/18 09:57 04/20/18 09:57 04/20/18 09:57 04/20/18 09:57 04/20/18 09:57 Course - Vital Signs Vital signs: Temp Pulse Resp BP Pulse Ox 98.5 F 87 18 112/64 100 04/20/18 09:57 04/20/18 09:57 04/20/18 09:57 04/20/18 09:57 04/20/18 09:57 Doctor's Discharge - Discharge Referrals: BHARGAV ADAME MD [Primary Care Provider] - Follow up as needed
--- NOTE | 2018-04-20 11:07 | ER Document Report ---
ED GI/ - General Chief Complaint: Abdominal Pain Stated Complaint: ABDOMINAL PAIN, HEADACHE Time Seen by Provider: 04/20/18 10:51 Mode of Arrival: Ambulatory Information source: Patient TRAVEL OUTSIDE OF THE [place] IN LAST 30 DAYS: No - HPI Patient complains to provider of: Pelvic pain, Onset: Yesterday Timing/Duration: Gradual Quality of pain: Cramping, Dull Severity at maximum: Moderate Context: Location: Pelvis - MIDLINE Vaginal bleeding (Compared to normal period): None Menstrual period history: LMP: 525 : 4 Para: 1 - Related Data Allergies/Adverse Reactions: aspirin [Aspirin] Allergy (Verified 04/20/18 09:52) Anaphylaxis morphine [Morphine] Allergy (Verified 04/20/18 09:52) Anaphylaxis Past Medical History - General Information source: Patient - Social History Smoking Status: Never Smoker Cigarette use (# per day): No Chew tobacco use (# tins/day): No Frequency of alcohol use: Social Drug Abuse: None Lives with: Spouse/Significant other Family History: Reviewed & Not Pertinent Patient has suicidal ideation: No Patient has homicidal ideation: No - Past Medical History Cardiac Medical History: Denies: Hx Coronary Artery Disease, Hx Heart Attack, Hx Hypertension Pulmonary Medical History: Denies: Hx Asthma, Hx Bronchitis, Hx COPD, Hx Pneumonia Neurological Medical History: Reports: Hx Migraine. Denies: Hx Cerebrovascular Accident, Hx Seizures Renal/ Medical History: Denies: Hx Peritoneal Dialysis Musculoskeltal Medical History: Denies Hx Arthritis Past Surgical History: Reports: Hx Orthopedic Surgery - right clavicle. Denies : Hx Hysterectomy - Immunizations Immunizations up to date: Yes Hx Diphtheria, Pertussis, Tetanus Vaccination: Yes Review of Systems - Review of Systems Constitutional: No symptoms reported EENT: No symptoms reported Cardiovascular: No symptoms reported Gastrointestinal: See HPI Genitourinary: See HPI Female Genitourinary: See HPI Musculoskeletal: No symptoms reported Skin: No symptoms reported Neurological/Psychological: No symptoms reported Physical Exam - Vital signs Vitals: Temp Pulse Resp BP Pulse Ox 98.5 F 87 18 112/64 100 04/20/18 09:57 04/20/18 09:57 04/20/18 09:57 04/20/18 09:57 04/20/18 09:57 Interpretation: Normal. No: Tachycardic, Tachypneic, Febrile - General General appearance: Appears well, Alert In distress: None - HEENT Head: Normocephalic Eyes: Normal Conjunctiva: Normal Ears: Normal Nasal: Normal Mouth/Lips: Normal Mucous membranes: Normal - Respiratory Respiratory status: No respiratory distress - Cardiovascular Rhythm: Regular - Abdominal Inspection: Normal Distension: No distension - Extremities General upper extremity: Normal inspection General lower extremity: Normal inspection - Neurological Neuro grossly intact: Yes Cognition: Normal Orientation: AAOx4 - Psychological Associated symptoms: Normal affect, Normal mood - Skin Skin Temperature: Warm Skin Moisture: Dry Skin Color: Normal Skin Turgor: Elastic Course - Vital Signs Vital signs: Temp Pulse Resp BP Pulse Ox 98.5 F 87 18 112/64 100 04/20/18 09:57 04/20/18 09:57 04/20/18 09:57 04/20/18 09:57 04/20/18 09:57 - Laboratory Result Diagrams: 04/20/18 11:15 04/20/18 11:15 Laboratory results interpreted by me: 04/20/18 04/20/18 11:15 11:15 Seg Neutrophils % 78.5 H Glucose 74 L Total Bilirubin 1.7 H Beta HCG, Quant 30958.00 H Discharge - Discharge Clinical Impression: Pelvic pain affecting in first trimester, antepartum Migraine Qualifiers: Migraine type: unspecified Status migrainosus presence: without status migrainosus Intractability: not intractable Qualified Code(s): G43.909 - Migraine, unspecified, not intractable, without status migrainosus Condition: Stable Disposition: HOME, SELF-CARE Instructions: Migraine Headache ([facility]), Pelvic Pain in ([facility]), Antinausea Medication ([facility]) Additional Instructions: REST, DRINK PLENTY OF FLUIDS. YOU MAY TAKE REGLAN FOR NAUSEA CONTROL IF NEEDED. FOLLOW UP WITH OB. CLINIC SCHEDULED. RETURN TO E.R. IF PROBLEMS. Prescriptions: Metoclopramide HCl [Reglan 10 mg Tablet] 10 mg PO Q6HP PRN #14 tablet PRN Reason: For Nausea/Vomiting Referrals: BHARGAV ADAME MD [Primary Care Provider] - Follow up as needed
[2018-04-20 11:48] LABS: ABSOLUTE LYMPHOCYTES (AUTO) 1.3 10^3/uL (0.5-4.7); ABSOLUTE MONOCYTES (AUTO) 0.5 10^3/uL (0.1-1.4); BASOPHILS % (AUTO) 0.2 % (0-2); EOSINOPHILS % (AUTO) 0.5 % (0-6); HEMATOCRIT 39.4 % (36.0-47.0); LYMPHOCYTES % (AUTO) 14.9 % (13-45); MEAN CORPUSCULAR HEMOGLOBIN 31.1 pg (27.0-33.4); MEAN CORPUSCULAR HGB CONC 35.4 g/dL (32.0-36.0); MEAN CORPUSCULAR VOLUME 88 fl (80-97); MONOCYTES % (AUTO) 5.9 % (3-13); PLATELET COUNT 249 10^3/uL (150-450); RED BLOOD COUNT 4.49 10^6/uL (3.72-5.28); RED CELL DISTRIBUTION WIDTH 12.5 % (11.5-14.0); SEGMENTED NEUTROPHILS % (AUTO) 78.5 % (42-78); TOTAL CELLS COUNTED % (AUTO) 100 %; WHITE BLOOD COUNT 8.9 10^3/uL (4.0-10.5)
[2018-04-20 12:05] LABS: ALANINE AMINOTRANSFERASE 32 U/L (9-52); ALBUMIN 4.2 g/dL (3.5-5.0); ALKALINE PHOSPHATASE 45 U/L (38-126); ANION GAP 13 (5-19); ASPARTATE AMINO TRANSFERASE 21 U/L (14-36); BILIRUBIN,DIRECT 0.2 mg/dL (0.0-0.4); BILIRUBIN,TOTAL 1.7 mg/dL (0.2-1.3); BLOOD UREA NITROGEN 8 mg/dL (7-20); CALCIUM 9.5 mg/dL (8.4-10.2); CARBON DIOXIDE 24 mmol/L (22-30); CHLORIDE 103 mmol/L (98-107); GLUCOSE 74 mg/dL (75-110); POTASSIUM 4.2 mmol/L (3.6-5.0); SODIUM 140.3 mmol/L (137-145); TOTAL PROTEIN 6.7 g/dL (6.3-8.2)
--- NOTE | 2018-04-20 12:20 | RADIOLOGY REPORT (SQ) ---
EXAM DESCRIPTION: U/S OB TRANSVAGINAL W/O DOP COMPLETED DATE/TIME: 04/20/2018 12:09 pm REASON FOR STUDY: lower abd pain, approx 8 wk preg COMPARISON: None. TECHNIQUE: Transvaginal static and realtime grayscale images acquired of the pelvis. Additional tej cted spectral and color Doppler images recorded. All images stored on PACs. bHCG: Not available. CLINICAL DATES: 2 week 5 day. LIMITATIONS: None. FINDINGS: FETUS: Living intrauterine . ULTRASOUND EGA: 8 week. ULTRASOUND RICARDO: 11/30/2018. CRL: 1.44 cm. FHR: 111 beats per minute. SUBCHORIONIC BLEED: No. SIZE OF BLEED: Not applicable. UTERUS: No masses. No anomalies. CERVICAL LENGTH: 3.3 cm. Closed. RIGHT ADNEXA: Normal ovary with normal vascular flow. No adnexal free fluid. Corpus Luteum measuring 1.6 cm. LEFT ADNEXA: Normal ovary with normal vascular flow. No adnexal free fluid. No adnexal masses. FREE FLUID: Small amount of free fluid in the posterior cul-de-sac. OTHER: No other significant finding. IMPRESSION: LIVING INTRAUTERINE . EGA 8 WEEK. Trimester of : First - 0 to 13 weeks. TECHNICAL DOCUMENTATION: JOB ID: [id number] [employer]- All Rights Reserved Reading location - IP/workstation name: [email or web address]
[2018-04-20 14:08] VITALS: BP 93/53
== END 2018-04-20 14:08 | disposition home or self-care (01) ==
LOC: ER 09:52
DX: O26.891 Other specified pregnancy related conditions, first trimester (principal); R10.2 Pelvic and perineal pain; G43.909 Migraine, unspecified, not intractable, without status migrainosus; R10.9 Unspecified abdominal pain; Z3A.08 8 weeks gestation of pregnancy
CPT/HCPCS: 99284; 96361; 96374; 96375; 36415; 84702; 85025; 80053; 76817; J1200; J2765; J7120

== ENCOUNTER → 2018-08-13 | Outpatient (CLI) | payer OTHER ==
[2018-08-16 22:36] LABS: INFLUENZA A AB (SERUM) CF 1:16 (Neg:<1:8)
[2018-08-17 07:45] LABS: INFLUENZA B AB (SERUM) CF Negative (Neg:<1:8)
== END ==
LOC: LAB 16:07
PROVIDERS: ATTEND Physician Assistant
DX: R52 Pain, unspecified (principal)
CPT/HCPCS: 36415; 86710

== ENCOUNTER 2018-09-05 10:15 | Emergency (ER) | payer OTHER ==
[2018-09-05] MEDS ORDERED: ONDANSETRON HCL INJ/PF 4 MG/2 ML SDV IV ONE (10:54)
[2018-09-05] MEDS ORDERED: GUAIFENESIN/CODEINE PHOS 100-10 MG/ 5 ML UDC PO ONE (10:54)
[2018-09-05] MEDS ORDERED: FENTANYL CITRATE INJ/PF 100 MCG/2 ML AMPUL IV ONE (10:54)
[2018-09-05] MEDS ORDERED: NORMAL SALINE 1000 ML 1,000 ML IV ONE (10:55)
[2018-09-05] MEDS ORDERED: NORMAL SALINE 1000 ML 1,000 ML IV PRN (10:55)
--- NOTE | 2018-09-05 10:58 | ER Document Report ---
ED Medical Screen (RME) - General Chief Complaint: Headache Stated Complaint: FLU SYMPTOMS Time Seen by Provider: 09/05/18 10:48 Notes: 28 years old female presents today with history of migraines, taking Imitrex, 3 weeks ago diagnosed as influenza A, has gone through 2 rounds of antibiotic initially with amoxicillin and then with Zithromax. Without improvement. Presents with sore throat dry cough general body aches and pain. Denies any nausea vomiting diarrhea denies any dysuria frequency urgency. TRAVEL OUTSIDE OF THE [place] IN LAST 30 DAYS: No - Related Data Allergies/Adverse Reactions: aspirin [Aspirin] Allergy (Verified 09/05/18 10:32) Anaphylaxis morphine [Morphine] Allergy (Verified 09/05/18 10:32) Anaphylaxis Past Medical History - Social History Chew tobacco use (# tins/day): No Frequency of alcohol use: None Drug Abuse: None - Past Medical History Cardiac Medical History: Denies: Hx Coronary Artery Disease, Hx Heart Attack, Hx Hypertension Pulmonary Medical History: Denies: Hx Asthma, Hx Bronchitis, Hx COPD, Hx Pneumonia Neurological Medical History: Reports: Hx Migraine. Denies: Hx Cerebrovascular Accident, Hx Seizures Renal/ Medical History: Denies: Hx Peritoneal Dialysis Musculoskeltal Medical History: Denies Hx Arthritis Past Surgical History: Reports: Hx Abdominal Surgery - Hernia repair, Hx Orthopedic Surgery - right clavicle. Denies: Hx Hysterectomy - Immunizations Immunizations up to date: Yes Hx Diphtheria, Pertussis, Tetanus Vaccination: Yes Physical Exam - Vital signs Vitals: Temp Pulse Resp BP Pulse Ox 98.4 F 70 18 121/79 100 09/05/18 10:42 09/05/18 10:42 09/05/18 10:42 09/05/18 10:42 09/05/18 10:42 Course - Vital Signs Vital signs: Temp Pulse Resp BP Pulse Ox 98.4 F 70 18 121/79 100 09/05/18 10:42 09/05/18 10:42 09/05/18 10:42 09/05/18 10:42 09/05/18 10:42 Doctor's Discharge - Discharge Referrals: TRAN OVIEDO PA [Primary Care Provider] - Follow up as needed
[2018-09-05 11:19] LABS: ABSOLUTE BASOPHILS # (AUTO) 0.1 10^3/uL (0.0-0.2); ABSOLUTE EOSINOPHILS # (AUTO) 0.1 10^3/uL (0.0-0.6); ABSOLUTE MONOCYTES (AUTO) 0.3 10^3/uL (0.1-1.4); ABSOLUTE NEUT (AUTO) 4.4 10^3/uL (1.7-8.2); BASOPHILS % (AUTO) 1.3 % (0-2); HEMATOCRIT 45.1 % (36.0-47.0); HEMOGLOBIN 15.9 g/dL (12.0-15.5); LYMPHOCYTES % (AUTO) 28.4 % (13-45); MEAN CORPUSCULAR HEMOGLOBIN 31.4 pg (27.0-33.4); MEAN CORPUSCULAR HGB CONC 35.1 g/dL (32.0-36.0); MEAN CORPUSCULAR VOLUME 89 fl (80-97); MONOCYTES % (AUTO) 4.9 % (3-13); PLATELET COUNT 322 10^3/uL (150-450); RED BLOOD COUNT 5.05 10^6/uL (3.72-5.28); RED CELL DISTRIBUTION WIDTH 12.2 % (11.5-14.0); SEGMENTED NEUTROPHILS % (AUTO) 64.4 % (42-78); TOTAL CELLS COUNTED % (AUTO) 100 %; WHITE BLOOD COUNT 6.9 10^3/uL (4.0-10.5)
--- NOTE | 2018-09-05 12:15 | ER Document Report ---
ED General - General Chief Complaint: Headache Stated Complaint: FLU SYMPTOMS Time Seen by Provider: 09/05/18 10:48 Notes: Patient has been sick for 3 weeks with general body aches, headaches, cough, and fever, symptoms of "the flu". She was seen by her primary care provider who treated her with amoxicillin. After that, she continued to have the same symptoms and was rechecked by her doctor who put her on Zithromax. Still has not had any improvement in her symptoms. Denies nausea or vomiting or diarrhea. No abdominal pain. She does have a slight cough with some small amount of phlegm production. Denies any UTI symptoms. Has had a sore throat. Fever last night. She feels she has a migraine headache as she has been diagnosed with migraines and is taking sumatriptan. This headache is the same as she has had with previous migraines and no different. Patient takes doxycycline as needed for acne. Has had a right inguinal hernia repair. On no regular prescription medications. TRAVEL OUTSIDE OF THE [place] IN LAST 30 DAYS: No - Related Data Allergies/Adverse Reactions: aspirin [Aspirin] Allergy (Verified 09/05/18 10:32) Anaphylaxis morphine [Morphine] Allergy (Verified 09/05/18 10:32) Anaphylaxis Past Medical History - Social History Smoking Status: Never Smoker Chew tobacco use (# tins/day): No Frequency of alcohol use: None Drug Abuse: None Family History: Reviewed & Not Pertinent Patient has suicidal ideation: No Patient has homicidal ideation: No Neurological Medical History: Reports: Hx Migraine Past Surgical History: Reports: Hx Abdominal Surgery - Hernia repair, Hx Orthopedic Surgery - right clavicle - Immunizations Immunizations up to date: Yes Hx Diphtheria, Pertussis, Tetanus Vaccination: Yes Review of Systems - Review of Systems Notes: REVIEW OF SYSTEMS: CONSTITUTIONAL : Fever last night. EENT: Denies eye, ear, nose or mouth pain or other symptoms. CARDIOVASCULAR: Patient has burning in her chest all the way up into her throat when she coughs.. RESPIRATORY: Has some residual cough with small amount of phlegm production. See HPI. GASTROINTESTINAL: Denies abdominal pain or nausea, vomiting, or diarrhea. GENITOURINARY: Denies difficulty or painful urinating, urinary frequency, blood in urine. MUSCULOSKELETAL: Denies back or neck pain. Denies joint pain or swelling. SKIN: Denies rash or skin lesions. NEUROLOGICAL: Denies LOC or altered mental status. Has a "migraine" headache during this 3 weeks. Denies sensory loss or motor deficits. ALL OTHER SYSTEMS REVIEWED AND NEGATIVE. Physical Exam - Vital signs Vitals: Temp Pulse Resp BP Pulse Ox 98.4 F 70 18 121/79 100 09/05/18 10:42 09/05/18 10:42 09/05/18 10:42 09/05/18 10:42 09/05/18 10:42 Interpretation: Normal Notes: PHYSICAL EXAMINATION: GENERAL: Well-appearing, in no acute distress. Voice sounds normal. HEAD: Atraumatic, normocephalic. EYES: Pupils equal round and reactive to light, extraocular movements intact. ENT: oropharynx clear without exudates. Just minor irritation appearance to the back of the throat. Moist mucous membranes. NECK: Normal range of motion, supple. LUNGS: Breath sounds clear and equal bilaterally. HEART: Regular rate and rhythm without murmurs. ABDOMEN: Soft, nontender. No guarding or rebound. No masses. BACK: No tenderness throughout entire back. EXTREMITIES: Normal range of motion without pain. NEUROLOGICAL: Normal speech, normal gait. Normal sensory, motor, and reflex exams. Awake, alert, and oriented x3. Cranial nerves normal. PSYCH: Normal mood, normal affect. SKIN: Warm, dry, no rashes. Course - Vital Signs Vital signs: Temp Pulse Resp BP Pulse Ox 98.2 F 70 18 109/63 100 09/05/18 14:28 09/05/18 10:42 09/05/18 10:42 09/05/18 14:28 09/05/18 10:42 - Laboratory Result Diagrams: 09/05/18 11:10 09/05/18 11:50 Laboratory results interpreted by me: 09/05/18 09/05/18 10:58 11:10 Hgb 15.9 H Urine Protein 100 H Discharge - Discharge Clinical Impression: Strep throat Condition: Stable Disposition: HOME, SELF-CARE Additional Instructions: SORE THROAT: Sore throats may be caused by viruses, bacteria, or fungi. Most are due to a virus, and must get better on their own. Bacterial sore throats, particularly those due to "strep," need treatment with antibiotics. If an antibiotic is prescribed, be sure to take the medication for a full 10 days. Failure to take the antibiotic can result in complications such as rheumatic fever. Sometimes, an injection of antibiotics is given instead of pills or liquid. This single "shot" is equal in effectiveness to the oral medication. To relieve symptoms, take acetaminophen for pain. Sip clear liquids frequently, or eat popsicles or ice chips. Anesthetic sprays or lozenges may help. Make sure the air in the room is not too dry. Avoid using decongestants or antihistamines. Call the doctor if there is no improvement in two days, or if you have difficulty breathing, increasing throat pain, high fever, rash, or frequent vomiting. STREP THROAT: Your sore throat is due to the streptococcus germ (strep throat). Strep throat usually makes you feel quite ill with fever and aches, headache, swollen sore throat, and tender bumps under the angles of the jaw. Strep throat requires antibiotic treatment. Although the sore throat may go away by itself, complications such as rheumatic fever, kidney disease, or throat abscess can occur. We usually prescribe antibiotics by mouth. Be sure to take the medicine until it's gone. If you stop early, the strep may come back. If you are vomiting, are severely ill, or can't remember to take pills, we can give you an antibiotic shot. Take acetaminophen or ibuprofen for pain and fever. Sip frequent clear liquids, or use popsicles or ice chips. Anesthetic sprays or lozenges may help. Make sure the air in the room is not too dry. Avoid using decongestants or antihistamines. Call the doctor if there is no improvement in three days, or if you have difficulty breathing, increasing throat pain, high fever, rash, or frequent vomiting. ORAL NARCOTIC MEDICATION: You have been given a prescription for pain control. This medication is a narcotic. It's best taken with food, as nausea can result if taken on an empty stomach. Don't operate machinery or drive within six hours of taking this medication. Do not combine this medicine with alcohol, or with any medication which can cause sedation (such as cold tablets or sleeping pills) unless you get permission from the physician. Narcotics tend to cause constipation. If possible, drink plenty of fluids and eat a diet high in fiber and fruits. PENICILLIN V K: You have been given a prescription for Penicillin VK. Your physician has determined that this is the best antibiotic for your condition. Pen VK can be taken with meals, however more of the antibiotic gets into the bloodstream if it's taken on an empty stomach. Penicillin usually has no side effects. However, allergy to penicillins is common. If you have had an allergic reaction to any drug of the penicillin family, you should never take any other penicillin. Notify your doctor at once if you develop hives, itching, swelling, faintness, or shortness of breath. Rocephin You have been given an injection of an antibiotic called Rocephin ( ceftriaxone). Sometimes the injection must be combined with antibiotic pills. For some infections, such as an uncomplicated ear infection, Rocephin provides all the antibiotic that's needed. The antibiotic will be in your body for about two days. For serious infections, we usually repeat doses of Rocephin daily. Side effects are very unusual following a shot. Women may develop vaginal yeast infections, and babies can get yeast (thrush) in the mouth following the use of antibiotics. Contact your physician if you have symptoms with this medication. Allergy to this antibiotic can result in hives, wheezing, faintness, or itching. If symptoms of allergy occur, call the doctor at once. Antinausea Medication You have been given a medication to suppress nausea and vomiting. This type of medication can be given as a shot, pill, or suppository. It will usually last for many hours. Pills and shots usually last six to eight hours, suppositories last about 12 hours. For the typical illness, only one or two doses of the medication may be necessary. Mild lightheadedness may occur. This type of medicine can cause drowsiness. Do not drive or operate dangerous machinery while under its influence. Do not mix with alcohol. See your doctor at once if you have muscle spasms or tightness, or uncontrollable motions (particularly of the neck, mouth, or jaw). Persistent vomiting or severe lightheadedness should also be evaluated by the physician. FOLLOW-UP CARE: If you have been referred to a physician for follow-up care, call the physician s office for an appointment as you were instructed or within the next two days. If you experience worsening or a significant change in your symptoms, notify the physician immediately or return to the Emergency Department at any time for re-evaluation. Prescriptions: Oxycodone HCl/Acetaminophen [Percocet 5-325 mg Tablet] 1 - 2 tab PO Q6HP PRN # 15 tablet PRN Reason: Penicillin V Potassium [Penicillin Vk 500 mg Tablet] 500 mg PO TID #25 tablet Promethazine HCl [Phenergan 25 mg Tablet] 1 - 2 tab PO Q6H PRN #15 tablet PRN Reason: Forms: Return to Work Referrals: TRAN OVIEDO PA [Primary Care Provider] - Follow up as needed
[2018-09-05 12:37] LABS: ALANINE AMINOTRANSFERASE 18 U/L (9-52); ALBUMIN 4.6 g/dL (3.5-5.0); ALKALINE PHOSPHATASE 51 U/L (38-126); ANION GAP 12 (5-19); ASPARTATE AMINO TRANSFERASE 23 U/L (14-36); BILIRUBIN,DIRECT 0.3 mg/dL (0.0-0.4); BILIRUBIN,TOTAL 1.2 mg/dL (0.2-1.3); BLOOD UREA NITROGEN 7 mg/dL (7-20); CALCIUM 9.7 mg/dL (8.4-10.2); CARBON DIOXIDE 27 mmol/L (22-30); CHLORIDE 105 mmol/L (98-107); GLUCOSE 82 mg/dL (75-110); POTASSIUM 4.4 mmol/L (3.6-5.0); SODIUM 144.2 mmol/L (137-145); TOTAL PROTEIN 8.1 g/dL (6.3-8.2)
--- NOTE | 2018-09-05 12:56 | RADIOLOGY REPORT (SQ) ---
EXAM DESCRIPTION: CHEST 2 VIEWS COMPLETED DATE/TIME: 09/05/2018 12:44 pm REASON FOR STUDY: Productive cough and anterior chest pain. COMPARISON: None. EXAM PARAMETERS: NUMBER OF VIEWS: two views TECHNIQUE: Digital Frontal and Lateral radiographic views of the chest acquired. RADIATION DOSE: NA LIMITATIONS: none FINDINGS: LUNGS AND PLEURA: No opacities, masses or pneumothorax. No pleural effusion. MEDIASTINUM AND HILAR STRUCTURES: No masses or contour abnormalities. HEART AND VASCULAR STRUCTURES: Heart normal size. No evidence for failure. BONES: No acute findings. HARDWARE: Hardware in the right clavicle. OTHER: No other significant finding. IMPRESSION: NO ACUTE RADIOGRAPHIC FINDING IN THE CHEST. TECHNICAL DOCUMENTATION: JOB ID: [id number] [employer]- All Rights Reserved Reading location - IP/workstation name: [email or web address]
[2018-09-05 13:00] LABS: APPEARANCE,URINE CLOUDY; BILIRUBIN,URINE NEGATIVE (NEGATIVE); COLOR,URINE YELLOW; GLUCOSE, URINE NEGATIVE (NEGATIVE); KETONES,URINE NEGATIVE (NEGATIVE); LEUKOCYTE ESTERASE,URINE NEGATIVE (NEGATIVE); NITRITE,URINE NEGATIVE (NEGATIVE); PROTEIN,URINE 100 mg/dL (NEGATIVE); URINE SPECIFIC GRAVITY 1.012; UROBILINOGEN,URINE NEGATIVE mg/dL (<2.0)
[2018-09-05] MEDS ORDERED: CEFTRIAXONE INJ 1000 MG VIAL IV ONE (13:02)
[2018-09-05] MEDS ORDERED: ACETAMINOPHEN 325 MG TABLET PO ONE (13:03)
[2018-09-05 14:30] VITALS: BP 109/63
== END 2018-09-05 14:35 | disposition home or self-care (01) ==
LOC: ER 10:15
DX: J02.0 Streptococcal pharyngitis (principal); R05 Cough; R50.9 Fever, unspecified; R09.89 Other specified symptoms and signs involving the circulatory and respiratory systems; G43.909 Migraine, unspecified, not intractable, without status migrainosus; Z87.892 Personal history of anaphylaxis; Z88.6 Allergy status to analgesic agent; Z88.5 Allergy status to narcotic agent
CPT/HCPCS: 99284; 96361; 96375; 96365; 36415; 87880; 85025; 81025; 80053; 81001; 71046; J3010; J0696; J2405; J7030

== ENCOUNTER 2018-12-29 14:43 | Emergency (ER) | payer OTHER ==
[2018-12-29] MEDS ORDERED: METOCLOPRAMIDE HCL INJ/PF 10 MG/2 ML SDV IV ONE (15:12)
[2018-12-29] MEDS ORDERED: DEXAMETHASONE SOD PHOS INJ 10 MG/1 ML VIAL IV ONE (15:12)
[2018-12-29] MEDS ORDERED: HYDROMORPHONE HCL INJ/PF 2 MG/ML AMPULE IV ONE (15:12)
[2018-12-29] MEDS ORDERED: NORMAL SALINE 1000 ML 1,000 ML IV ONE (15:12)
--- NOTE | 2018-12-29 15:14 | ER Document Report ---
ED General - General Chief Complaint: Headache Stated Complaint: HEADACHE Time Seen by Provider: 12/29/18 14:57 Primary Care Provider: TRAN OVIEDO PA [Primary Care Provider] - Follow up in 3-5 days Notes: Patient is a 28-year-old female with history of chronic migraines that presents to the emergency department for chief complaint of headache. Patient states she is been having a headache that she is unable to improve at home with her usual dose of oral sumatriptan, and subcutaneous sumatriptan so she decided come to the emergency department. She has had nausea and a few episodes of vomiting this morning as well. She is had associated photophobia, phonophobia and aura, which are all typical of her migraines. This is not particularly worsened 1 of her migraines just 1 of the 1 sets of breakthrough that she needs treatment in the emergency department for which she has had in the past. Denies any numbness, tingling or weakness in any of her extremities. Denies any slurred speech, or ataxia. Past Medical History: Migraine headaches Past Surgical History: Hernia repair Social History: Admits to occasional alcohol use, denies tobacco or drug use. Family History: Reviewed and noncontributory for presenting illness Allergies: Reviewed, see documented allergy list. REVIEW OF SYSTEMS: Other than noted above, the 12 point review of systems was reviewed with the patient and were negative, all pertinent findings are included in the HPI. PHYSICAL EXAMINATION: Vital signs reviewed, nursing noted reviewed. GENERAL: Well-appearing, well-nourished and in no acute distress. HEAD: Atraumatic, normocephalic. EYES: Eyes appear normal, sclera anicteric, conjunctiva are normal. ENT: Moist mucous membranes. NECK: Normal range of motion, supple without lymphadenopathy LUNGS: Breath sounds clear to auscultation bilaterally and equal. No wheezes rales or rhonchi. HEART: Regular rate and rhythm without murmurs EXTREMITIES: Nontender, good range of motion, no pitting or edema. NEUROLOGICAL: No focal neurological deficits. Moves all extremities spontaneously Motor and sensory grossly intact on exam. PSYCH: Normal mood, normal affect. SKIN: Warm, Dry, normal turgor, no rashes or lesions noted on exposed skin TRAVEL OUTSIDE OF THE [place] IN LAST 30 DAYS: No - Related Data Allergies/Adverse Reactions: aspirin [Aspirin] Allergy (Verified 12/29/18 14:58) Anaphylaxis morphine [Morphine] Allergy (Verified 12/29/18 14:58) Anaphylaxis Past Medical History - Social History Smoking Status: Never Smoker Chew tobacco use (# tins/day): No Frequency of alcohol use: Social Drug Abuse: None Family History: Reviewed & Not Pertinent Patient has suicidal ideation: No Patient has homicidal ideation: No - Past Medical History Cardiac Medical History: Denies: Hx Coronary Artery Disease, Hx Heart Attack, Hx Hypertension Pulmonary Medical History: Denies: Hx Asthma, Hx Bronchitis, Hx COPD, Hx Pneumonia Neurological Medical History: Reports: Hx Migraine. Denies: Hx Cerebrovascular Accident, Hx Seizures Renal/ Medical History: Denies: Hx Peritoneal Dialysis Musculoskeletal Medical History: Denies Hx Arthritis Past Surgical History: Reports: Hx Abdominal Surgery - Hernia repair, Hx Orthopedic Surgery - right clavicle. Denies: Hx Hysterectomy - Immunizations Immunizations up to date: Yes Hx Diphtheria, Pertussis, Tetanus Vaccination: Yes Physical Exam - Vital signs Vitals: Temp Pulse Resp BP Pulse Ox 98.2 F 80 18 106/66 100 12/29/18 14:52 12/29/18 14:52 12/29/18 14:52 12/29/18 14:52 12/29/18 14:52 Course - Re-evaluation Re-evalutation: Patient seen and examined vital signs reviewed. Patient was evaluated and treated as appropriate for the patient's presenting symptoms and complaint, with consideration of any critical or life threatening conditions that may be associated with their obtained history and exam as noted above. Patient was treated with IV fluids, low-dose of IV Dilaudid, dexamethasone The patient was re-evaluated and was stable, headache was completely resolved at that point Evaluation was most consistent with migraine type headache, patient has history of this, will discharge her with Fioricet to take at home and follow-up with neurology which she was agreeable to. Plan of care was discussed with the patient at this point, after careful consideration I feel that that patient can be discharged from the emergency department, the patient was educated treatments and reasons to return to the emergency department based on their presumed diagnosis as noted above, they were advised to followup with a primary care physician in 2-3 days. Patient was agreeable to plan of care. *Note is created using voice recognition software and may contain spelling, syntax or grammatical errors. - Vital Signs Vital signs: Temp Pulse Resp BP Pulse Ox 97.6 F 56 L 18 97/65 L 97 12/29/18 16:45 12/29/18 16:45 12/29/18 14:52 12/29/18 16:45 12/29/18 16:45 Discharge - Discharge Clinical Impression: Headache Qualifiers: Headache type: unspecified Headache chronicity pattern: acute headache Intractability: not intractable Qualified Code(s): R51 - Headache Condition: Stable Disposition: HOME, SELF-CARE Instructions: Headache ([facility]) Additional Instructions: Please follow-up with your neurologist, you may take the Fioricet every 4-6 hours if needed for headache. Prescriptions: Butalb/Acetaminophen/Caffeine [Fioricet 50-300-40 mg Capsule] 1 cap PO Q6 #12 cap Ondansetron [Zofran Odt 4 mg Tablet] 1 tab PO Q8H PRN #15 tab.rapdis PRN Reason: For Nausea/Vomiting Referrals: TRAN OVIEDO PA [Primary Care Provider] - Follow up in 3-5 days
[2018-12-29 16:47] VITALS: BP 97/65
== END 2018-12-29 16:47 | disposition home or self-care (01) ==
LOC: ER 14:43
DX: G43.109 Migraine with aura, not intractable, without status migrainosus (principal); R11.2 Nausea with vomiting, unspecified; H53.149 Visual discomfort, unspecified; Z87.892 Personal history of anaphylaxis; Z88.6 Allergy status to analgesic agent; Z88.5 Allergy status to narcotic agent
CPT/HCPCS: 99283; J2765; J1170; J7030; J1100

== ENCOUNTER 2019-04-30 12:28 | Emergency (ER) | payer OTHER ==
[2019-04-30] MEDS ORDERED: NORMAL SALINE 1000 ML 1,000 ML IV ONE (12:47)
[2019-04-30] MEDS ORDERED: ONDANSETRON HCL INJ/PF 4 MG/2 ML SDV IV ONE (12:47)
--- NOTE | 2019-04-30 12:49 | ER Document Report ---
ED Medical Screen (RME) - General Chief Complaint: Abdominal Pain Stated Complaint: ABDOMINAL PAIN Time Seen by Provider: 04/30/19 12:46 Primary Care Provider: TRAN OVIEDO PA [Primary Care Provider] - Follow up as needed Mode of Arrival: Ambulatory Information source: Patient Notes: Patient presents complaining of left lower quadrant pelvic pain for the past 3 days. Patient also reports left lower back pain. Patient reports irregular vaginal bleeding. Patient denies any vaginal discharge or urinary symptoms. Patient does complain of nausea and vomiting. Patient reports fever of 104.6 yesterday. I have greeted and performed a rapid initial assessment of this patient. A comprehensive ED assessment and evaluation of the patient, analysis of test res ults and completion of the medical decision making process will be conducted by additional ED providers. TRAVEL OUTSIDE OF THE [place] IN LAST 30 DAYS: No - Related Data Allergies/Adverse Reactions: aspirin [Aspirin] Allergy (Verified 04/30/19 12:28) Anaphylaxis morphine [Morphine] Allergy (Verified 04/30/19 12:28) Anaphylaxis Past Medical History - Past Medical History Cardiac Medical History: Denies: Hx Coronary Artery Disease, Hx Heart Attack, Hx Hypertension Pulmonary Medical History: Denies: Hx Asthma, Hx Bronchitis, Hx COPD, Hx Pneumonia Neurological Medical History: Reports: Hx Migraine. Denies: Hx Cerebrovascular Accident, Hx Seizures Renal/ Medical History: Denies: Hx Peritoneal Dialysis Musculoskeltal Medical History: Denies Hx Arthritis Past Surgical History: Reports: Hx Abdominal Surgery - Hernia repair, Hx Orthopedic Surgery - right clavicle. Denies: Hx Hysterectomy - Immunizations Immunizations up to date: Yes Hx Diphtheria, Pertussis, Tetanus Vaccination: Yes Physical Exam - Vital signs Vitals: Temp Pulse Resp BP Pulse Ox 98.2 F 69 18 111/63 99 04/30/19 12:41 04/30/19 12:41 04/30/19 12:41 04/30/19 12:41 04/30/19 12:41 - Abdominal Tenderness: Tender - Left lower pelvic Course - Vital Signs Vital signs: Temp Pulse Resp BP Pulse Ox 98.2 F 69 18 111/63 99 04/30/19 12:41 04/30/19 12:41 04/30/19 12:41 04/30/19 12:41 04/30/19 12:41 Doctor's Discharge - Discharge Referrals: TRAN OVIEDO PA [Primary Care Provider] - Follow up as needed
[2019-04-30 13:13] LABS: ABSOLUTE EOSINOPHILS # (AUTO) 0.1 10^3/uL (0.0-0.6); ABSOLUTE LYMPHOCYTES (AUTO) 1.3 10^3/uL (0.5-4.7); ABSOLUTE MONOCYTES (AUTO) 0.4 10^3/uL (0.1-1.4); ABSOLUTE NEUT (AUTO) 3.4 10^3/uL (1.7-8.2); EOSINOPHILS % (AUTO) 1.4 % (0-6); HEMATOCRIT 42.1 % (36.0-47.0); HEMOGLOBIN 14.8 g/dL (12.0-15.5); LYMPHOCYTES % (AUTO) 25.7 % (13-45); MEAN CORPUSCULAR HEMOGLOBIN 30.9 pg (27.0-33.4); MEAN CORPUSCULAR HGB CONC 35.3 g/dL (32.0-36.0); MEAN CORPUSCULAR VOLUME 88 fl (80-97); MONOCYTES % (AUTO) 6.9 % (3-13); PLATELET COUNT 246 10^3/uL (150-450); RED BLOOD COUNT 4.81 10^6/uL (3.72-5.28); TOTAL CELLS COUNTED % (AUTO) 100 %; WHITE BLOOD COUNT 5.2 10^3/uL (4.0-10.5)
[2019-04-30 14:15] LABS: ALANINE AMINOTRANSFERASE 20 U/L (9-52); ALBUMIN 4.2 g/dL (3.5-5.0); ALKALINE PHOSPHATASE 47 U/L (38-126); ANION GAP 9 (5-19); ASPARTATE AMINO TRANSFERASE 28 U/L (14-36); BILIRUBIN,DIRECT 0.5 mg/dL (0.0-0.4); BILIRUBIN,TOTAL 1.4 mg/dL (0.2-1.3); BLOOD UREA NITROGEN 11 mg/dL (7-20); CALCIUM 9.5 mg/dL (8.4-10.2); CARBON DIOXIDE 24 mmol/L (22-30); CHLORIDE 106 mmol/L (98-107); GLUCOSE 85 mg/dL (75-110); POTASSIUM 4.6 mmol/L (3.6-5.0); SODIUM 139.4 mmol/L (137-145); TOTAL PROTEIN 7.2 g/dL (6.3-8.2)
[2019-04-30 15:19] LABS: APPEARANCE,URINE CLOUDY; BILIRUBIN,URINE NEGATIVE (NEGATIVE); COLOR,URINE RED; GLUCOSE, URINE NEGATIVE (NEGATIVE); KETONES,URINE NEGATIVE (NEGATIVE); LEUKOCYTE ESTERASE,URINE TRACE (NEGATIVE); NITRITE,URINE NEGATIVE (NEGATIVE); PROTEIN,URINE 100 mg/dL (NEGATIVE); URINE SPECIFIC GRAVITY 1.021; UROBILINOGEN,URINE NEGATIVE mg/dL (<2.0)
--- NOTE | 2019-04-30 16:10 | RADIOLOGY REPORT (SQ) ---
EXAM DESCRIPTION: U/S NON OB PEL TV W/DOPPLER COMPLETED DATE/TIME: 04/30/2019 4:00 pm REASON FOR STUDY: LLQ pain COMPARISON: None. TECHNIQUE: Dynamic and static grayscale images acquired of the pelvis via transvaginal approach and recorded on PACS. Additional selected color Doppler and spectral images recorded. LIMITATIONS: None. FINDINGS: UTERUS: Contour normal. No mass. ENDOMETRIAL STRIPE: No focal or generalized thickening. No masses. CERVIX: No nabothian cysts. RIGHT OVARY AND DOPPLER: Normal size. No worrisome masses. Normal arterial vascular flow without evid ence for torsion. LEFT OVARY AND DOPPLER: Normal size. No worrisome masses. Normal arterial vascular flow without evide nce for torsion. FREE FLUID: None noted. OTHER: No other significant finding. MEASUREMENTS: UTERUS: 8 x 5 x 4 cm ENDOMETRIAL STRIPE: 3 mm RIGHT OVARY: 3 x 3 x 2 cm LEFT OVARY: 3 x 3 x 2 cm IMPRESSION: Age-appropriate exam. TECHNICAL DOCUMENTATION: JOB ID: [id number] [place]-72 2010 [employer]- All Rights Reserved Rev-03/23 Reading location - IP/workstation name: [employer]
[2019-04-30] MEDS ORDERED: CEPHALEXIN 500 MG CAPSULE PO ONE (16:27)
[2019-04-30] MEDS ORDERED: CEFTRIAXONE 1 GM/D5W RTU 1 GM/50 ML RTUPB IV ONE (16:29)
--- NOTE | 2019-04-30 16:29 | ER Document Report ---
ED General - General Chief Complaint: Abdominal Pain Stated Complaint: ABDOMINAL PAIN Time Seen by Provider: 04/30/19 12:46 Primary Care Provider: TRAN OVIEDO PA [Primary Care Provider] - Follow up as needed Mode of Arrival: Ambulatory Notes: Patient is a 28-year-old female presents to the emergency department for left pelvic pain for the last 3 days. States she has been back and forth to her [facility] for an ovarian cyst on her left side. States she does take tramadol for same pain. States she has had some generalized brown/dark red vaginal bleeding intermittently for the last 3 days. Patient's denying any other vaginal discharge or malodor. Patient is denying any dysuria. States she has vomited over 5 times in the last 3 days is denying any blood in her emesis. Patient's denying any diarrhea. States she did have a fever last night T-max 104.6. Patient is complaining of some generalized to the left lower back pain. Patient denies any history of kidney stones. Past medical history: Migraines Medications: Sumatriptan, doxycycline for acne Allergies: Aspirin, morphine Surgical history: Right inguinal hernia repair TRAVEL OUTSIDE OF THE [place] IN LAST 30 DAYS: No - Related Data Allergies/Adverse Reactions: aspirin [Aspirin] Allergy (Verified 04/30/19 12:28) Anaphylaxis morphine [Morphine] Allergy (Verified 04/30/19 12:28) Anaphylaxis Past Medical History - General Information source: Patient - Social History Smoking Status: Unknown if Ever Smoked Chew tobacco use (# tins/day): No Frequency of alcohol use: None Drug Abuse: None Family History: Reviewed & Not Pertinent Patient has suicidal ideation: No Patient has homicidal ideation: No - Past Medical History Cardiac Medical History: Denies: Hx Coronary Artery Disease, Hx Heart Attack, Hx Hypertension Pulmonary Medical History: Denies: Hx Asthma, Hx Bronchitis, Hx COPD, Hx Pneumonia Neurological Medical History: Reports: Hx Migraine. Denies: Hx Cerebrovascular Accident, Hx Seizures Renal/ Medical History: Denies: Hx Peritoneal Dialysis Musculoskeletal Medical History: Denies Hx Arthritis Past Surgical History: Reports: Hx Abdominal Surgery - Hernia repair, Hx Orthopedic Surgery - right clavicle. Denies: Hx Hysterectomy - Immunizations Immunizations up to date: Yes Hx Diphtheria, Pertussis, Tetanus Vaccination: Yes Review of Systems - Review of Systems Constitutional: Fever EENT: No symptoms reported Cardiovascular: No symptoms reported Respiratory: No symptoms reported Gastrointestinal: See HPI Genitourinary: See HPI Female Genitourinary: See HPI Musculoskeletal: See HPI Skin: No symptoms reported Hematologic/Lymphatic: No symptoms reported Neurological/Psychological: No symptoms reported Physical Exam - Vital signs Vitals: Temp Pulse Resp BP Pulse Ox 98.2 F 69 18 111/63 99 04/30/19 12:41 04/30/19 12:41 04/30/19 12:41 04/30/19 12:41 04/30/19 12:41 - Notes Notes: GENERAL: Alert, interacts well. No acute distress. HEAD: Normocephalic, atraumatic. EYES: Pupils equal, round, and reactive to light. Extraocular movements intact. ENT: Oral mucosa moist, tongue midline. NECK: Full range of motion. Supple. Trachea midline. LUNGS: Clear to auscultation bilaterally, no wheezes, rales, or rhonchi. No respiratory distress. HEART: Regular rate and rhythm. No murmur ABDOMEN: Soft, no McBurney's point tenderness, no Finnegan sign noted. Non- distended. Bowel sounds present in all 4 quadrants. Generalized left pelvic pain noted. EXTREMITIES: Moves all 4 extremities spontaneously. No edema, normal radial and dorsalis pedis pulses bilaterally. No cyanosis. BACK: no cervical, thoracic, lumbar midline tenderness. No saddle anesthesia, normal distal neurovascular exam. No CVA tenderness noted bilaterally NEUROLOGICAL: Alert and oriented x3. Normal speech. cranial nerves II through XII grossly intact PSYCH: Normal affect, normal mood. SKIN: Warm, dry, normal turgor. No rashes or lesions noted. Course - Re-evaluation Re-evalutation: 04/30/19 16:31 Patient is a 28-year-old female presents to the emergency department with left pelvic pain and some left lower back pain. Patient states she has an extensive history with ovarian cyst and has noted some generalized vaginal bleeding. Patient states she called her [facility] TECH[facility] who told her to go to the emergency room due to her pain to get a pelvic ultrasound. Patient states she has been tested for sexually transmitted diseases at her [facility] and was all negative. gonorrhea and Chlamydia testing ordered by [facility]. Patient is wishing to decline a pelvic exam or self swabs for a wet mount. She is also wishing to decline any prophylactic treatment for gonorrhea and chlamydia as this tests are still pending. I discussed patient's diagnosis of urinary tract infection, urine sent for culture. I have discussed potential diagnosis of kidney stones as well as there is blood on patient's urine. Patient continues to deny any history of kidney stones and wishes to decline CT imaging at this time to rule out any other pathology. I discussed patient's ultrasound results, bilateral ovaries appear within normal limits, no torsion, no cyst noted. Patient states she will follow-up with her [facility] for continued care. Patient is requesting discharge at this time. Patient stable for discharge. - Vital Signs Vital signs: Temp Pulse Resp BP Pulse Ox 98.2 F 69 18 111/63 99 04/30/19 12:41 04/30/19 12:41 04/30/19 12:41 04/30/19 12:41 04/30/19 12:41 - Laboratory Result Diagrams: 04/30/19 13:00 04/30/19 13:00 Laboratory results interpreted by me: 04/30/19 04/30/19 13:00 15:00 Total Bilirubin 1.4 H Direct Bilirubin 0.5 H Urine Protein 100 H Urine Blood LARGE H Ur Leukocyte Esterase TRACE H Discharge - Discharge Clinical Impression: Urinary tract infection Qualifiers: Urinary tract infection type: acute cystitis Hematuria presence: with hematuria Qualified Code(s): N30.01 - Acute cystitis with hematuria Condition: Stable Disposition: HOME, SELF-CARE Instructions: Urinary Tract Infection ([facility]), Cephalexin ([facility]) Additional Instructions: As we discussed you have been seen and treated in the emergency department for a urinary tract infection. Your urine was sent for culture to confirm this infection. Please make sure you are taking antibiotics as prescribed. Please also make sure taking [id number] Tylenol Motrin for generalized fevers or pain. Please follow-up with your primary care provider and [facility] within the next 24 to 48 hours. Please also return to the emergency room should you have any concerns. Prescriptions: Cephalexin Monohydrate [Keflex 500 mg Capsule] 500 mg PO BID 7 Days #14 capsule Ondansetron [Zofran Odt 4 mg Tablet] 1 tab PO Q6 PRN #10 tab.rapdis PRN Reason: For Nausea/Vomiting Forms: Return to Work Referrals: TRAN OVIEDO PA [Primary Care Provider] - Follow up as needed
[2019-04-30 16:44] LABS: CHLAM PCR NOT DETECTED (NOT DETECT)
[2019-04-30 18:02] VITALS: BP 105/58
== END 2019-04-30 18:05 | disposition home or self-care (01) ==
LOC: ER 12:28
DX: N30.01 Acute cystitis with hematuria (principal); R10.2 Pelvic and perineal pain; N93.9 Abnormal uterine and vaginal bleeding, unspecified; M54.5 Low back pain; R50.9 Fever, unspecified; R11.10 Vomiting, unspecified; L70.9 Acne, unspecified; Z79.2 Long term (current) use of antibiotics; G43.909 Migraine, unspecified, not intractable, without status migrainosus; Z79.899 Other long term (current) drug therapy; Z87.892 Personal history of anaphylaxis; Z88.8 Allergy status to other drugs, medicaments and biological substances; Z88.5 Allergy status to narcotic agent
CPT/HCPCS: 99284; 96361; 96375; 96365; 36415; 87086; 84703; 85025; 80053; 81001; 87491; 87591; 76830; 93976; J2405; J7030; J0696

== ENCOUNTER 2019-09-05 11:09 | Emergency (ER) | payer OTHER ==
[2019-09-05 11:14] VITALS: BP 112/72
[2019-09-05] MEDS ORDERED: HYDROCODONE/ACETAMINOPHEN 5-325 MG TABLET PO ONE (11:20)
--- NOTE | 2019-09-05 11:20 | ER Document Report ---
ED Medical Screen (RME) - General Chief Complaint: Hand Injury Stated Complaint: RIGHT HAND PAIN Time Seen by Provider: 09/05/19 11:15 Primary Care Provider: TRAN OVIEDO PA [Primary Care Provider] - Follow up as needed Mode of Arrival: Ambulatory Information source: Patient Notes: 29-year-old female presented to ED for reading injury to her right hand. She states a month ago she had a boxer fracture when she hit her hand with a gear box and then today she accidentally hit her hand on a counter. She is alert oriented respirations regular nonlabored speaking in full sentences walks with even steady gait. She does have a history of migraines. Vitamin D deficiency. I have greeted and performed a rapid initial assessment of this patient. A comprehensive ED assessment and evaluation of the patient, analysis of test results and completion of medical decision making process will be conducted by an additional ED providers. TRAVEL OUTSIDE OF THE [place] IN LAST 30 DAYS: No - Related Data Allergies/Adverse Reactions: aspirin [Aspirin] Allergy (Verified 09/05/19 11:15) Anaphylaxis morphine [Morphine] Allergy (Verified 09/05/19 11:15) Anaphylaxis Past Medical History - Past Medical History Cardiac Medical History: Denies: Hx Coronary Artery Disease, Hx Heart Attack, Hx Hypertension Pulmonary Medical History: Denies: Hx Asthma, Hx Bronchitis, Hx COPD, Hx Pneumonia Neurological Medical History: Reports: Hx Migraine. Denies: Hx Cerebrovascular Accident, Hx Seizures Renal/ Medical History: Denies: Hx Peritoneal Dialysis Musculoskeltal Medical History: Denies Hx Arthritis Past Surgical History: Reports: Hx Abdominal Surgery - Hernia repair, Hx Orthopedic Surgery - right clavicle. Denies: Hx Hysterectomy - Immunizations Immunizations up to date: Yes Hx Diphtheria, Pertussis, Tetanus Vaccination: Yes Physical Exam - Vital signs Vitals: Temp Pulse Resp BP Pulse Ox 97.7 F 68 16 112/72 100 09/05/19 11:11 09/05/19 11:11 09/05/19 11:11 09/05/19 11:11 09/05/19 11:11 Course - Vital Signs Vital signs: Temp Pulse Resp BP Pulse Ox 97.7 F 68 16 112/72 100 09/05/19 11:11 09/05/19 11:11 09/05/19 11:11 09/05/19 11:11 09/05/19 11:11 Doctor's Discharge - Discharge Referrals: TRAN OVIEDO PA [Primary Care Provider] - Follow up as needed
--- NOTE | 2019-09-05 11:49 | RADIOLOGY REPORT (SQ) ---
EXAM DESCRIPTION: HAND RIGHT 3 VIEWS COMPLETED DATE/TIME: 09/05/2019 11:32 am REASON FOR STUDY: accidently hit a counter broke it a month ago COMPARISON: 03/11/2013 EXAM PARAMETERS: NUMBER OF VIEWS: Three views. TECHNIQUE: AP, lateral and oblique radiographic images acquired of the right hand. LIMITATIONS: None. FINDINGS: MINERALIZATION: Normal. BONES: Fracture of the distal 5th metacarpal with 30 dorsal angulation. Medial callus formation. JOINTS: No effusions. SOFT TISSUES: No soft tissue swelling. No foreign body. OTHER: No other significant finding. IMPRESSION: Healing fracture 5th metacarpal. TECHNICAL DOCUMENTATION: JOB ID: [id number] [employer]- All Rights Reserved Reading location - IP/workstation name: [email or web address]
--- NOTE | 2019-09-05 12:05 | ER Document Report ---
HPI - HPI Time Seen by Provider: 09/05/19 11:15 Pain Level: 4 Context: Patient is a 29-year-old female who presents to the emergency department with chief complaint of right hand pain. Patient reports about 1 month ago she was diagnosed with a boxer fracture. Patient reports she did wear a splint and was cleared. Patient reports over the past month she has had a deformity to the tip of the right fifth digit. Patient reports she does have a follow-up appointment with Dr. Alcala in 2 weeks in regards to this deformity. Patient reports yesterday while at work she jammed her right fifth finger. Patient reports this did cause pain to the fifth digit on the right hand as well as the right lateral hand where she had a fracture. Patient states she was concerned that she may have obtained a never fracture. Patient reports that the pain is worse with movement to the right hand. - CONSTITUTIONAL Constitutional: DENIES: Fever, Chills - REPRODUCTIVE LMP: 08/2019 Reproductive: DENIES: : - MUSCULOSKELETAL Musculoskeletal: REPORTS: Extremity pain Past Medical History - General Information source: Patient - Social History Smoking Status: Never Smoker Chew tobacco use (# tins/day): No Frequency of alcohol use: None Drug Abuse: None Lives with: Alone Family History: Reviewed & Not Pertinent Patient has suicidal ideation: No Patient has homicidal ideation: No - Past Medical History Cardiac Medical History: Reports: None Denies: Hx Coronary Artery Disease, Hx Heart Attack, Hx Hypertension Pulmonary Medical History: Reports: None Denies: Hx Asthma, Hx Bronchitis, Hx COPD, Hx Pneumonia EENT Medical History: Reports: None Neurological Medical History: Reports: Hx Migraine. Denies: Hx Cerebrovascular Accident, Hx Seizures Endocrine Medical History: Reports: None Renal/ Medical History: Reports: None. Denies: Hx Peritoneal Dialysis Malignancy Medical History: Reports: None GI Medical History: Reports: None Musculoskeletal Medical History: Reports None, Denies Hx Arthritis Skin Medical History: Reports None Psychiatric Medical History: Reports: None Traumatic Medical History: Reports: None Infectious Medical History: Reports: None Past Surgical History: Reports: Hx Abdominal Surgery - Hernia repair, Hx Orthopedic Surgery - right clavicle. Denies: Hx Hysterectomy - Immunizations Immunizations up to date: Yes Hx Diphtheria, Pertussis, Tetanus Vaccination: Yes Vertical Provider Document - CONSTITUTIONAL Agree With Documented VS: Yes Exam Limitations: No Limitations General Appearance: No Apparent Distress - INFECTION CONTROL TRAVEL OUTSIDE OF THE [place] IN LAST 30 DAYS: No - HEENT HEENT: Atraumatic, Normocephalic, PERRLA - NECK Neck: Normal Inspection - RESPIRATORY Respiratory: Breath Sounds Normal, No Respiratory Distress - CARDIOVASCULAR Cardiovascular: Regular Rate, Regular Rhythm - GI/ABDOMEN Gastrointestinal: Abdomen Soft, Abdomen Non-Tender, Normal Bowel Sounds - MUSCULOSKELETAL/EXTREMETIES Musculoskeletal/Extremeties: FROM, Edema, Eccymosis Notes: Patient does have some edema and ecchymosis noted to the base of the fifth metacarpal on the right hand. Patient does have a deformity to the DIP joint of the fifth digit (reports chronic). Patient has a strong right radial pulse. Patient is able to make a somewhat of a fist with the right hand but reports significant pain to the fifth digit. There is no erythema. - NEURO Level of Consciousness: Awake, Alert, Appropriate - DERM Integumentary: Warm, Dry, No Rash Course - Re-evaluation Re-evalutation: 09/05/19 12:[address] the patient in a finger splint for immobilization as well as a cock-up splint. Patient verbalized understanding. Patient does have a follow- up appointment in [address] Alcala in regards to the deformity in her right fifth finger which is chronic and not new. - Vital Signs Vital signs: Temp Pulse Resp BP Pulse Ox 97.7 F 68 16 112/72 100 09/05/19 11:11 09/05/19 11:11 09/05/19 11:11 09/05/19 11:11 09/05/19 11:11 - Diagnostic Test Radiology reviewed: Reports reviewed Radiology results interpreted by me: 09/05/19 12:05 Hand X-Ray 09/05/19 11:15 IMPRESSION: Healing fracture 5th metacarpal. Discharge - Discharge Clinical Impression: Contusion of right hand Qualifiers: Encounter type: initial encounter Qualified Code(s): S60.221A - Contusion of right hand, initial encounter Contusion of finger of right hand Qualifiers: Encounter type: initial encounter Finger: little finger Damage to nail status: without damage Qualified Code(s): S60.051A - Contusion of right little finger without damage to nail, initial encounter Condition: Stable Disposition: HOME, SELF-CARE Additional Instructions: Today you are seen in the emergency department for right hand pain. Your x-ray did show a healing fracture of the fifth metacarpal of the right hand with callus formation. We have placed you in a finger splint as well as a cock-up splint to help immobilize the finger and hand. Please wear this for the next few days as you do have a contusion which is a deep bruise. Please elevate and use ice. Use Tylenol or ibuprofen as needed for pain. Please keep your appointment with Dr. Alcala in 2 weeks for follow-up of your finger injury and deformity that is chronic. Forms: Return to Work Referrals: ALBARO ALCALA, [ACTIVE STAFF] - Follow up as needed
== END 2019-09-05 12:06 | disposition home or self-care (01) ==
LOC: ER 11:09
DX: S60.221A Contusion of right hand, initial encounter (principal); S60.051A Contusion of right little finger without damage to nail, initial encounter; X58.XXXA Exposure to other specified factors, initial encounter
CPT/HCPCS: 73130; L3908

== ENCOUNTER 2019-12-18 14:03 | Emergency (ER) | payer OTHER ==
[2019-12-18] MEDS ORDERED: IBUPROFEN 800 MG TABLET PO ONE (14:25)
--- NOTE | 2019-12-18 14:26 | ER Document Report ---
HPI - HPI Patient complains to provider of: right ankle pain Time Seen by Provider: 12/18/19 14:15 Onset: Just prior to arrival Onset/Duration: Sudden Quality of pain: Achy Context: 29-year-old female presents emergency department with complaints of right ankle pain. 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 Denies past medical history of injury to this ankle. No other complaint such as fever vomiting diarrhea. Associated Symptoms: None Exacerbated by: Walking, Deep breathing Similar symptoms previously: No Recently seen / treated by doctor: No - REPRODUCTIVE Reproductive: DENIES: : Past Medical History - General Information source: Patient - Social History Smoking Status: Unknown if Ever Smoked Frequency of alcohol use: None Drug Abuse: None Occupation: Emergency [employer] Family History: Reviewed & Not Pertinent - Past Medical History Cardiac Medical History: Denies: Hx Coronary Artery Disease, Hx Heart Attack, Hx Hypertension Pulmonary Medical History: Denies: Hx Asthma, Hx Bronchitis, Hx COPD, Hx Pneumonia Neurological Medical History: Reports: Hx Migraine. Denies: Hx Cerebrovascular Accident, Hx Seizures Renal/ Medical History: Denies: Hx Peritoneal Dialysis Musculoskeletal Medical History: Denies Hx Arthritis Traumatic Medical History: Reports: Hx Fractures Past Surgical History: Reports: Hx Abdominal Surgery - Hernia repair, Hx Orthopedic Surgery - right clavicle. Denies: Hx Hysterectomy - Immunizations Immunizations up to date: Yes Hx Diphtheria, Pertussis, Tetanus Vaccination: Yes Vertical Provider Document - CONSTITUTIONAL Agree With Documented VS: Yes Exam Limitations: No Limitations General Appearance: WD/WN, No Apparent Distress - winces when shoe was removed - INFECTION CONTROL TRAVEL OUTSIDE OF THE [place] IN LAST 30 DAYS: No - HEENT HEENT: Atraumatic, Normocephalic - NECK Neck: Supple - RESPIRATORY Respiratory: No Respiratory Distress - MUSCULOSKELETAL/EXTREMETIES Musculoskeletal/Extremeties: MAEW, FROM, Tender - Right ankle laterally tender to palpate good pedal pulse, no obvious deformity no erythema swelling or warmth - NEURO Level of Consciousness: Awake, Alert, Appropriate Motor/Sensory: No Motor Deficit - DERM Integumentary: Warm, Dry Course - Re-evaluation Re-evalutation: 12/18/19 15:46 Ankle X-Ray 12/18/19 14:15 IMPRESSION: No definite acute bony abnormality. Punctate calcific density seen on the lateral projection at the plantar aspect of the midfoot without clear donor site, possibly heterotopic ossification. Recommend correlation with point tenderness. X-ray negative. Patient has no tenderness to the midfoot. She was instructed on x-ray instructed on ankle stirrup splint and crutches. Instructed to rest ice elevate Motrin and follow-up with orthopedics for continued pain. She verbalized understanding to all instructions. - Diagnostic Test Radiology reviewed: Image reviewed, Reports reviewed Procedures - Immobilization Right Ankle Pre-Proc Neuro Vasc Exam: Normal Immobilizer type: Ankle stirrup Performed by: PCT Post-Proc Neuro Vasc Exam: Unchanged from pre-exam Alignment checked and good: Yes Discharge - Discharge Clinical Impression: Right ankle injury Qualifiers: Encounter type: initial encounter Qualified Code(s): S99.911A - Unspecified injury of right ankle, initial encounter Condition: Stable Disposition: HOME, SELF-CARE Instructions: Ankle Stirrup Splint ([facility]), Use of Crutches ([facility]), Ibuprofen (General) ([facility]), Ice & Elevation ([facility]) Additional Instructions: *You have been evaluated for an ankle injury *Rest/Ice/Elevate your ankle *Maintain the splint and use your crutches for the next three days *Follow up with orthopedics within 1 week for continued pain *Take medication as prescribed *Return to ED for worsening condition, changes, needs Prescriptions: Ibuprofen [Motrin 800 mg Tablet] 800 mg PO TID #15 tablet Forms: Return to Work Referrals: TRAN CHRIS PA-C [Primary Care Provider] - Follow up in 3-5 days
--- NOTE | 2019-12-18 14:50 | RADIOLOGY REPORT (SQ) ---
EXAM DESCRIPTION: ANKLE RIGHT COMPLETE COMPLETED DATE/TIME: 12/18/2019 2:25 pm REASON FOR STUDY: rolled at work COMPARISON: None. NUMBER OF VIEWS: Three views. TECHNIQUE: AP, lateral, and oblique radiographic images acquired of the right ankle. LIMITATIONS: None. FINDINGS: MINERALIZATION: Normal. BONES: No definite fracture. Punctate calcific density seen on the lateral projection at the plantar aspect of the midfoot, likely heterotopic ossification or degenerative. JOINTS: No effusions. SOFT TISSUES: No soft tissue swelling. No foreign body. OTHER: No other significant finding. IMPRESSION: No definite acute bony abnormality. Punctate calcific density seen on the lateral projection at the plantar aspect of the midfoot without clear donor site, possibly heterotopic ossification. Recommend correlation with point tenderness. TECHNICAL DOCUMENTATION: JOB ID: [id number] 2010 [employer]- All Rights Reserved Reading location - IP/workstation name: [email or web address]
[2019-12-18 15:19] VITALS: BP 99/61
== END 2019-12-18 15:25 | disposition home or self-care (01) ==
LOC: ER 14:03
DX: S99.911A Unspecified injury of right ankle, initial encounter (principal); X50.0XXA Overexertion from strenuous movement or load, initial encounter; Y93.K9 Activity, other involving animal care; Y92.89 Other specified places as the place of occurrence of the external cause; Y99.0 Civilian activity done for income or pay
CPT/HCPCS: 99283

== ENCOUNTER 2019-12-26 09:27 | Day surgery (SDC) | payer OTHER ==
[~2019-12-26 09:27] MED LIST: ACETAMINOPHEN 325 MG TABLET PO PRN; CEFAZOLIN SODIUM 2 GM in DEXTROSE 5%-WATER 100 ML IV PRN; OXYCODONE HCL SR 10 MG TABLET PO PRN
[2019-12-26] MEDS ORDERED: ACETAMINOPHEN 325 MG TABLET ONE (10:13)
[2019-12-26] MEDS ORDERED: ONDANSETRON HCL INJ/PF 4 MG/2 ML SDV ONE (10:15)
[2019-12-26] MEDS ORDERED: MIDAZOLAM 2 MG/2 ML INJ ONE (10:15)
[2019-12-26] MEDS ORDERED: FENTANYL CITRATE INJ/PF 100 MCG/2 ML AMPUL ONE (10:15)
[2019-12-26] MEDS ORDERED: DEXAMETHASONE SOD PHOSPHATE INJ 4 MG/1 ML VIAL ONE (10:15)
[2019-12-26] MEDS ORDERED: PROPOFOL INJ 200 MG/20 ML VIAL IV ONE (10:16)
[2019-12-26] MEDS ORDERED: OXYCODONE HCL SR 10 MG TABLET PO ONE (10:43)
[2019-12-26] MEDS ORDERED: KETOROLAC TROMETHAMINE INJ/PF 30 MG/1 ML SDV ONE (12:21)
[2019-12-26] MEDS ORDERED: BUPIVACAINE HCL 0.5 % INJ/PF 30 ML SDV ONE (12:21)
[2019-12-26] MEDS ORDERED: TRIAMCINOLONE ACETONIDE INJ 40 MG/1 ML VIAL ONE (12:21)
[2019-12-26] MEDS ORDERED: LIDOCAINE 1% INJ-PF (10 MG/ML) 30 ML SDV ONE (12:21)
[2019-12-26] MEDS ORDERED: FENTANYL CITRATE INJ/PF 100 MCG/2 ML AMPUL IV PRN ×3 (12:59)
[2019-12-26] MEDS ORDERED: MEPERIDINE HCL/PF INJ 25 MG/1 ML DISP.SYRIN IV PRN (12:59)
[2019-12-26] MEDS ORDERED: PROMETHAZINE HCL INJ 25 MG/1 ML VIAL IV PRN (12:59)
[2019-12-26] MEDS ORDERED: DIPHENHYDRAMINE HCL 50 MG/ML VIAL IV PRN (12:59)
[2019-12-26] MEDS: EPINEPHRINE INJ/PF 1 MG/1 ML AMPULE ONE ×2 (13:16→13:37)
[2019-12-26] MEDS ORDERED: EPINEPHRINE INJ/PF 1 MG/1 ML AMPULE ONE ×2 (13:32→13:45)
--- NOTE | 2019-12-26 14:16 | Operative Report ---
Operative Report DATE OF SURGERY: 12/26/19 PREOPERATIVE DIAGNOSIS: Left knee plica, internal derangement POSTOPERATIVE DIAGNOSIS: Left knee plica, internal derangement OPERATION: Left knee diagnostic arthroscopy, fat pad debridement, lateral release, plica excision SURGEON: АЛЕКСАНДР DUGAN JR ANESTHESIA: GA COMPLICATIONS: None ESTIMATED BLOOD LOSS: 20cc PROCEDURE: The patient was brought to the operating suite and placed supine on the operating table. 2 g of Ancef were provided. They were provided with general anesthesia. After adequate analgesia the left lower extremity was then prepped and draped in standard sterile fashion. After this a appropriate timeout was performed and the patient was marked. An Esmarch was used to exsanguinate the limb and the tourniquet was inflated. We then proceeded by making a lateral portal and inserting our camera. Upon doing so I normally inspect the and proceeded to debride thickened tissue on the lateral aspect of the patella and under the fat pad until we are able to gain visualization of the lateral gutter. However due to the thickened and scarred fat pad I was unable to navigate l aterally and visualization of the patellofemoral joint was difficult. I went directly to visualize the medial compartment and inserted a spinal needle to localize the medial portal. The medial portal was then made followed by a trocar to dilate, followed by introduction of a probe. Patient had a very thick and scarred infrapatellar fat pad that made access navigation throughout the lateral compartment difficult. Due to this we introduced a shaver proceeded to debride the infrapatellar fat pad and some of this thickened synovium surrounding the patella and along the medial lateral anterior compartment. After adequate debridement we were then able to visualize the ACL PCL and lateral compartment and proceeded with our standard diagnostic arthroscopy starting with the medial compartment and evaluating the ACL and PCL as well as the lateral compartment. These were all in excellent condition with no signs of meniscus tear, cartilage loss or injury, or other internal derangement. Then returned to the suprapatellar pouch and proceeded with lateral debridement of thickened synovium and fat pad. After obtaining adequate visualization a medial plica was appreciated and we resected that with a shaver. We then turned our attention laterally where a lateral band of thickened synovium and fat pad was appreciated, this was resected. Upon obtaining appropriate lateral visualization we proceeded with a heat wand to perform a lateral release of the thickened lateral capsule. The knee was brought into flexion and a portion of the anterior IT band and thickened lateral capsule were noted to contact the lateral femoral condyle and was tight enough to prevent me from being able to explore the lateral gutter. We then released a portion of the anterior IT band was unable to explore the gutter. Full expiration of the knee did not find any loose bodies. Pictures were taken throughout the procedure. The wound was copiously irrigated and all excess fluid was evacuated. The knee was injected with a cocktail of local anesthetic and then sutures were applied to the portal sites followed by a sterile compressive dressing. The patient was then awakened from anesthesia and transferred to the PACU in stable condition.
[2019-12-26] MEDS ORDERED: OXYCODONE HCL IR 5 MG TABLET PO PRN ×2 (14:37→14:38)
[2019-12-26] MEDS ORDERED: MORPHINE SULFATE 10 MG/ML INJ IV PRN (14:39)
[2019-12-26] MEDS ORDERED: TRAMADOL HCL 50 MG TABLET PO PRN (14:40)
[2019-12-26] MEDS ORDERED: ONDANSETRON 4 MG TAB.RAPDIS PO PRN (14:41)
[2019-12-26] MEDS ORDERED: DIPHENHYDRAMINE HCL 25 MG CAPSULE PO PRN (14:41)
[2019-12-26] MEDS ORDERED: OXYCODONE HCL IR 5 MG TABLET ONE (14:49)
--- NOTE | 2019-12-26 16:16 | Discharge Summary ---
Discharge Summary (SDC) - Discharge Final Diagnosis: Left knee internal derangement, fat pad syndrome, medial plica Date of Surgery: 12/26/19 Discharge Date: 12/26/19 Condition: Stable Forms: ASU Anesthesia D/C Instruction, Discharge POC-Surgical Service Treatment or Instructions: Full details of postoperative instructions have been provided to the patient in the clinic. Prescriptions: Oxycodone HCl [Oxy-Ir 5 mg Tablet] 5 mg PO ONCE PRN #40 tablet PRN Reason: Referrals: АЛЕКСАНДР DUGAN JR, DO [ACTIVE PROVISIONAL STAFF] - (Follow up as instructed.) TRAN CHRIS PA-C [Primary Care Provider] - Respiratory Treatments at Home: Deep Breathing/Coughing Discharge Activity: Activity As Tolerated, No Driving, Keep Legs Elevated, No Lifting Over 10 Pounds, Slowly Increase Activity, No tub bath, Walk Frequently Home Care Assistance: None Needed Adaptive Devices on Discharge: Axillary Crutches Report the Following to Your Physician Immediately: Shortness of Breath, Fever over 101 Degrees, Unusual Bleeding, Redness, Swelling, Warmth, Drainage-Yellow, IV Site Infection Signs
[2019-12-26 17:18] VITALS: BP 109/80
[2019-12-26] MEDS ORDERED: ACETAMINOPHEN 325 MG TABLET PO SCH (22:00)
== END 2019-12-26 16:15 | disposition home or self-care (01) ==
LOC: OROUT 09:27
PROVIDERS: ATTEND Orthopaedic Surgery
DX: M25.562 Pain in left knee (principal); M23.92 Unspecified internal derangement of left knee; M67.52 Plica syndrome, left knee; Z88.5 Allergy status to narcotic agent; Z88.6 Allergy status to analgesic agent
CPT/HCPCS: 81025; 01400; 29875; 29873; J2250; J3490 ×2; J0690; J1100; J0171; J3010; J1885; J2405; J3301; J7060; J2704; 1400

== ENCOUNTER 2020-07-05 23:55 | Emergency (ER) | payer OTHER ==
[2020-07-06 03:12] LABS: ABSOLUTE EOSINOPHILS # (AUTO) 0.2 10^3/uL (0.0-0.6); ABSOLUTE LYMPHOCYTES (AUTO) 1.8 10^3/uL (0.5-4.7); ABSOLUTE MONOCYTES (AUTO) 1.2 10^3/uL (0.1-1.4); ABSOLUTE NEUT (AUTO) 7.3 10^3/uL (1.7-8.2); BASOPHILS % (AUTO) 0.4 % (0-2); EOSINOPHILS % (AUTO) 1.6 % (0-6); HEMATOCRIT 37.2 % (36.0-47.0); LYMPHOCYTES % (AUTO) 16.7 % (13-45); MEAN CORPUSCULAR HEMOGLOBIN 30.9 pg (27.0-33.4); MEAN CORPUSCULAR VOLUME 88 fl (80-97); MONOCYTES % (AUTO) 11.8 % (3-13); PLATELET COUNT 277 10^3/uL (150-450); RED BLOOD COUNT 4.22 10^6/uL (3.72-5.28); SEGMENTED NEUTROPHILS % (AUTO) 69.5 % (42-78); TOTAL CELLS COUNTED % (AUTO) 100 %; WHITE BLOOD COUNT 10.6 10^3/uL (4.0-10.5)
[2020-07-06 03:53] LABS: ALBUMIN 3.6 g/dL (3.5-5.0); ALKALINE PHOSPHATASE 49 U/L (38-126); ANION GAP 7 (5-19); ASPARTATE AMINO TRANSFERASE 21 U/L (14-36); BILIRUBIN,DIRECT 0.2 mg/dL (0.0-0.4); BILIRUBIN,TOTAL 0.8 mg/dL (0.2-1.3); BLOOD UREA NITROGEN 11 mg/dL (7-20); CALCIUM 8.8 mg/dL (8.4-10.2); CARBON DIOXIDE 27 mmol/L (22-30); CHLORIDE 104 mmol/L (98-107); GLUCOSE 78 mg/dL (75-110); POTASSIUM 4.1 mmol/L (3.6-5.0); TOTAL PROTEIN 6.2 g/dL (6.3-8.2)
[2020-07-06 06:12] LABS: APPEARANCE,URINE SLIGHTLY-CLOUDY; BILIRUBIN,URINE NEGATIVE (NEGATIVE); COLOR,URINE YELLOW; GLUCOSE, URINE NEGATIVE (NEGATIVE); KETONES,URINE NEGATIVE (NEGATIVE); LEUKOCYTE ESTERASE,URINE NEGATIVE (NEGATIVE); NITRITE,URINE NEGATIVE (NEGATIVE); PROTEIN,URINE 30 mg/dL (NEGATIVE); URINE SPECIFIC GRAVITY 1.021; UROBILINOGEN,URINE NEGATIVE mg/dL (<2.0)
--- NOTE | 2020-07-06 06:15 | ER Document Report ---
ED GI/ - General Mode of Arrival: Ambulatory Information source: Patient TRAVEL OUTSIDE OF THE U[place] IN LAST 30 DAYS: No - HPI Patient complains to provider of: Abdominal pain, Feeding tube problem. No: Diarrhea, Dysuria, Hematuria, , Vaginal discharge, Vaginal pain, Vomiting Onset: Last week Timing/Duration: Intermittent, Waxing and waning Quality of pain: Cramping, Sharp, Throbbing Severity at maximum: Severe Severity in ED: Moderate Pain Level: 4 Context: denies: Bad food, Lifting, Out of the country travel, , Recent trauma Location: [facility]. No: Right flank Adult Front & Back Diagram: 1 - Area of discomfort Vaginal bleeding (Compared to normal period): None LMP: 4 days ago Sexual history: Inactive Associated symptoms: Fever, Nausea Exacerbated by: Denies Relieved by: Denies Similar symptoms previously: Yes Recently seen / treated by doctor: No - Related Data Home Medications: sumatriptim 100mg, doxycycline, azithromycin <JOSHUA YATES - Last Filed: 07/07/20 06:48> <RICKY SHEN - Last Filed: 07/08/20 12:08> - General Chief Complaint: Abdominal Pain Stated Complaint: VOMITING/CHILLS/FEVER Time Seen by Provider: 07/06/20 05:54 Primary Care Provider: TRAN CHRIS PA-C [Primary Care Provider] - Follow up as needed Notes: Patient is a 29-year-old female comes emergency room with complaint of right lower quadrant pain. Patient states her pain started on this past Monday it came on all of a sudden. And then it has subsided and would come back again. Patient states she knows that it is "appendicitis". 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 She also states that she has had some nausea without vomiting. She denies any dysuria or hematuria. Her last menstrual period ended last Monday. And the pain started that same day. She denies any other medical problems. She has had no diarrhea or constipation no vomiting (JOSHUA YATES) - Related Data Allergies/Adverse Reactions: aspirin [Aspirin] Allergy (Verified 07/07/20 08:02) Anaphylaxis morphine [Morphine] Allergy (Verified 07/07/20 08:02) Anaphylaxis Past Medical History - General Information source: Patient Last Menstrual Period: 4 days ago - Social History Smoking Status: Never Smoker Cigarette use (# per day): No Chew tobacco use (# tins/day): No Smoking Education Provided: No Frequency of alcohol use: Occasional Drug Abuse: None Lives with: Alone Family History: Reviewed & Not Pertinent Patient has homicidal ideation: No - Past Medical History Cardiac Medical History: Denies: Hx Coronary Artery Disease, Hx Heart Attack, Hx Hypertension Pulmonary Medical History: Denies: Hx Asthma, Hx Bronchitis, Hx COPD, Hx Pneumonia Neurological Medical History: Reports: Hx Migraine. Denies: Hx Cerebrovascular Accident, Hx Seizures Renal/ Medical History: Denies: Hx Peritoneal Dialysis Musculoskeletal Medical History: Denies Hx Arthritis Traumatic Medical History: Reports: Hx Fractures Past Surgical History: Reports: Hx Abdominal Surgery - Hernia repair, Hx Orthopedic Surgery - right clavicle. Denies: Hx Hysterectomy - Immunizations Immunizations up to date: Yes Hx Diphtheria, Pertussis, Tetanus Vaccination: Yes <JOSHUA YATES - Last Filed: 07/07/20 06:48> Review of Systems - Review of Systems Constitutional: Fever EENT: No symptoms reported Cardiovascular: No symptoms reported Respiratory: No symptoms reported Gastrointestinal: See HPI, Abdominal pain, Nausea. denies: Diarrhea Genitourinary: See HPI. denies: Dysuria Female Genitourinary: See HPI Musculoskeletal: No symptoms reported Skin: No symptoms reported Hematologic/Lymphatic: No symptoms reported Neurological/Psychological: No symptoms reported -: Yes All other systems reviewed and negative <JOSHUA YATES - Last Filed: 07/07/20 06:48> Physical Exam - Vital signs Interpretation: Normal <JOSHUA YATES - Last Filed: 07/07/20 06:48> - Vital signs Vitals: Temp Pulse Resp BP Pulse Ox 97.4 F 93 18 106/48 L 100 07/06/20 00:01 07/06/20 00:01 07/06/20 00:01 07/06/20 00:01 07/06/20 00:01 - Notes Notes: PHYSICAL EXAMINATION: GENERAL: Well-appearing, well-nourished and in no acute distress. HEAD: Atraumatic, normocephalic. EYES: Pupils equal round and reactive to light, extraocular movements intact, conjunctiva are normal. ENT: Nares patent, oropharynx clear without exudates. Moist mucous membranes. NECK: Normal range of motion, supple without lymphadenopathy LUNGS: Breath sounds clear to auscultation bilaterally and equal. No wheezes rales or rhonchi. HEART: Regular rate and rhythm without murmurs ABDOMEN: Examination patient's abdomen shows she has bowel sounds present all 4 quads. Patient has no tenderness in the 4 quads. Her pain is more producible in the right lateral lower quadrant of the adnexal area. She does have some pe riumbilical tenderness but it appears to be more referred from the lateral side. She has no other peritoneal signs she has no obturator no guarding no heel strike walks without any discomfort. Female : deferred Musculoskeletal: Normal range of motion, no pitting or edema. No cyanosis. NEUROLOGICAL:. Normal speech, normal gait. Normal sensory, motor exams PSYCH: Normal mood, normal affect. SKIN: Warm, Dry, normal turgor, no rashes or lesions noted. (JOSHUA YATES) Course - Laboratory Result Diagrams: 07/06/20 02:57 07/06/20 02:57 <JOSHUA YATES - Last Filed: 07/07/20 06:48> - Laboratory Result Diagrams: 07/07/20 06:55 07/07/20 06:55 <RICKY SHEN - Last Filed: 07/08/20 12:08> - Re-evaluation Re-evalutation: 07/06/20 06:15 Patient's presentation is currently 1 today consider stronger for ovarian torsion or ruptured ovarian cyst and I do for appendicitis. She has been going on for 4 days and if it was appendicitis believe her white count would be incrementally getting higher. She has some nausea but no vomiting. Patient is very tender in the lateral aspect of the right lower quadrant and so this to me goes more along with adnexal tenderness. We will go ahead and get an ultrasound of the area first if that is negative then we want we may consider doing a CT with contrast diabetes style to see if there is an appendicitis and she is so skinny. 07/07/20 06:49 Is my procedure consistent I have really taken over patient care from Ricky Shen the daytime nurse practitioner late evening yesterday. I stopped in a check on patient a few times throughout the night make sure she is resting comfortably and I have given her just luminal pain medication nausea medication throughout the night. I have gone back in and talk to her this morning again I feel it is important that we maintain continuity so I felt like we should repeat the labs to make sure that the white counts of were not going up in case this was a type of a necrotic area. Patient is still wanting to go to [facility] and the vascular surgeon was talked to by the nurse practitioner Ricky Shen and they felt that knowing that there would be a weight would be okay. Patient has had no increasing amount of pain she states this pain throughout the entire day yesterday into the night. (JOSHUA YATES) 07/06/20 10:21 Call placed to [facility] as patient's CT is concerning for renal infarct. Images pushed via power shared by [employer] secretary staff. Demographics faxed. Awaiting phone call back from vascular. 07/06/20 10:[address] Zavala, Vascular surgeon. He states pt needs a medical work-up for a hypercoagulable conditon. He will consult as needed. Transfer center will page Hospitalist. 07/06/20 10:42 Patient accepted for admission by Dr. Edwardo Morley MD, Hospitalist. Awaiting bed assignment. (RICKY SHEN) - Vital Signs Vital signs: Temp Pulse Resp BP Pulse Ox 98.1 F 90 17 101/69 99 07/06/20 19:41 07/06/20 07:12 07/07/20 14:01 07/07/20 14:00 07/07/20 14:01 - Laboratory Laboratory results interpreted by me: 07/06/20 07/06/20 07/06/20 02:57 02:57 05:30 WBC 10.6 H ESR C-Reactive Protein Total Protein 6.2 L Albumin Urine Protein 30 H 07/07/20 07/07/20 06:55 06:55 WBC ESR 60 H C-Reactive Protein 122.5 H Total Protein 6.1 L Albumin 3.2 L Urine Protein Discharge <JOSHUA YATES - Last Filed: 07/07/20 06:48> <RICKY SHEN - Last Filed: 07/08/20 12:08> - Discharge Clinical Impression: Right flank pain, Renal infarct Condition: Stable Disposition: [place] Referrals: TRAN CHRIS PA-C [Primary Care Provider] - Follow up as needed
--- NOTE | 2020-07-06 07:29 | RADIOLOGY REPORT (SQ) ---
EXAM: US Pelvis Transvaginal and US Duplex Arterial/Venous of the Pelvis, Complete EXAM DATE/TIME: 07/06/2020 6:35 AM CLINICAL HISTORY: The patient is 29 years old and is Female; pain, ? torsion TECHNIQUE: Real-time transvaginal pelvic ultrasound with image documentation. Transvaginal imaging was used for better evaluation of the endometrium and adnexa. Real-time duplex ultrasound scan of the arterial and venous flow of the pelvis with color Doppler flow and spectral waveform analysis. COMPARISON: pelvic ultrasound from 04/30/2019 FINDINGS: UTERUS/CERVIX: The uterus measures 8.4 x 3.3 x 4.9 cm. No myometrial mass. Endometrial stripe measures 4 mm. The cervix is unremarkable. RIGHT OVARY: The right ovary measures 3.3 x 1.9 x 2.1 cm and is unremarkable. Follicles visualized, with a dominant follicle measuring 1.4 cm. No ovarian mass. There is blood flow in the right ovary, with arterial and venous waveforms demonstrated. LEFT OVARY: The left ovary measures 3.4 x 2.3 x 2.5 cm and is unremarkable. Normal follicles. No ovarian mass. There is blood flow in the left ovary, with arterial and venous waveforms demonstrated. FREE FLUID: No free fluid. BLADDER: Empty bladder which cannot be evaluated with this probe. IMPRESSION: No acute findings in the pelvis. No sonographic evidence of ovarian torsion.
--- NOTE | 2020-07-06 09:18 | RADIOLOGY REPORT (SQ) ---
EXAM DESCRIPTION: CT ABD/PELVIS WITH IV ONLY IMAGES COMPLETED DATE/TIME: 07/06/2020 8:44 am REASON FOR STUDY: right lower quad pain COMPARISON: None. TECHNIQUE: CT scan of the abdomen and pelvis performed using helical scanning technique with dynamic intravenous contrast injection. No oral contrast. Images reviewed with lung, soft tissue, and bone windows. Reconstructed coronal and sagittal MPR images reviewed. Delayed images for evaluation of the urinary system also acquired. All images stored on PACS. All CT scanners at this facility use dose modulation, iterative reconstruction, and/or weight based d osing when appropriate to reduce radiation dose to as low as reasonably achievable (ALARA). [facility]: Dose Right [facility]: CareDose [facility]: Dose Right [facility]: Teradose 4D [facility]: X5 Group CONTRAST TYPE AND DOSE: contrast/concentration: Isovue 350.00 mmol/ml; Total Contrast Delivered: 66. 0 ml; Total Saline Delivered: 65.0 ml RENAL FUNCTION: None required. The patient is less than 50 years old. RADIATION DOSE: CT Rad equipment meets quality standard of care and radiation dose reduction techniq ues were employed. CTDIvol: 5.0 - 5.6 mGy. DLP: 565 mGy-cm.. LIMITATIONS: None. FINDINGS: LOWER CHEST: No significant findings. No nodules or infiltrates. LIVER: Normal size. No masses. No dilated ducts. SPLEEN: Normal size. No focal lesions. PANCREAS: No masses. No significant calcifications. No adjacent inflammation or peripancreatic fluid collections. Pancreatic duct not dilated. GALLBLADDER: No identified stones by CT criteria. No inflammatory changes to suggest cholecystitis. ADRENAL GLANDS: No significant masses or asymmetry. RIGHT KIDNEY AND URETER: ILL-DEFINED AREA OF HYPOATTENUATION WITHIN THE RIGHT INTERPOLAR REGION WHICH EXTENDS TO THE CORTEX MEASURING APPROXIMATELY 2.5 X 2.5 CM (SERIES 3, IMAGE 33). No significant ca lcifications. No hydronephrosis or hydroureter. LEFT KIDNEY AND URETER: No solid masses. No significant calcifications. No hydronephrosis or hydr oureter. AORTA AND VESSELS: No aneurysm. No dissection. Renal arteries, SMA, celiac without stenosis. RETROPERITONEUM: No retroperitoneal adenopathy, hemorrhage or masses. BOWEL AND PERITONEAL CAVITY: No evidence of intestinal obstruction. No focal bowel wall thickening. Trace free fluid within the pelvis, possibly physiologic. No free intraperitoneal gas. APPENDIX: Likely partially visualized and appears normal (series 601, image 15-18). No significant p ericecal fluid or inflammatory change. PELVIS: Trace free fluid within the pelvis. Unremarkable appearance of the ovaries and urinary bladd er. Unremarkable uterus. Multiple scattered pelvic phleboliths. ABDOMINAL WALL: No masses. No hernias. BONES: No significant or acute findings. OTHER: No other significant finding. IMPRESSION: 1. Ill-defined area of hypoattenuation in the right interpolar region measuring 2.5 x 2 .5 cm. Differential includes solid renal lesion, pseudo renal lesion from pyelonephritis or possibly renal infarct. Recommend correlation with urinalysis. Follow-up imaging should be considered. 2. Likely partially visualized appendix which appears normal. No significant pericecal inflammatory change. 3. Trace fluid within the pelvis, likely physiologic. TECHNICAL DOCUMENTATION: JOB ID: [id number] Quality ID # [id number]: Final reports with documentation of one or more dose reduction techniques (e.g., Au tomated exposure control, adjustment of the mA and/or kV according to patient size, use of iterative reconstruction technique) 2010 [employer]- All Rights Reserved Reading location - IP/workstation name: [email or web address]
[2020-07-06] MEDS ORDERED: KETOROLAC TROMETHAMINE INJ/PF 30 MG/1 ML SDV IV ONE (10:20)
[2020-07-06] MEDS ORDERED: HYDROMORPHONE HCL INJ/PF 2 MG/ML AMPULE IV ONE ×3 (12:44→22:42)
[2020-07-06 12:49] LABS: INTERNATIONAL RATION (INR) 1.02; PROTHROMBIN TIME 13.6 SEC (11.4-15.4)
[2020-07-06 12:50] LABS: PARTIAL THROMBOPLASTIN TIME 33.8 SEC (23.5-35.8)
[2020-07-06] MEDS ORDERED: DIPHENHYDRAMINE HCL 50 MG/ML VIAL IV ONE (22:43)
[2020-07-07 07:07] LABS: ABSOLUTE EOSINOPHILS # (AUTO) 0.1 10^3/uL (0.0-0.6); ABSOLUTE LYMPHOCYTES (AUTO) 1.6 10^3/uL (0.5-4.7); ABSOLUTE MONOCYTES (AUTO) 0.6 10^3/uL (0.1-1.4); ABSOLUTE NEUT (AUTO) 3.9 10^3/uL (1.7-8.2); BASOPHILS % (AUTO) 0.6 % (0-2); EOSINOPHILS % (AUTO) 1.5 % (0-6); HEMATOCRIT 36.5 % (36.0-47.0); HEMOGLOBIN 13.1 g/dL (12.0-15.5); LYMPHOCYTES % (AUTO) 25.8 % (13-45); MEAN CORPUSCULAR HEMOGLOBIN 31.2 pg (27.0-33.4); MEAN CORPUSCULAR HGB CONC 35.8 g/dL (32.0-36.0); MEAN CORPUSCULAR VOLUME 87 fl (80-97); MONOCYTES % (AUTO) 9.3 % (3-13); PLATELET COUNT 308 10^3/uL (150-450); RED CELL DISTRIBUTION WIDTH 12.9 % (11.5-14.0); SEGMENTED NEUTROPHILS % (AUTO) 62.8 % (42-78); TOTAL CELLS COUNTED % (AUTO) 100 %; WHITE BLOOD COUNT 6.2 10^3/uL (4.0-10.5)
[2020-07-07 07:27] LABS: ALBUMIN 3.2 g/dL (3.5-5.0); ALKALINE PHOSPHATASE 44 U/L (38-126); ANION GAP 6 (5-19); ASPARTATE AMINO TRANSFERASE 22 U/L (14-36); BILIRUBIN,DIRECT 0.2 mg/dL (0.0-0.4); BILIRUBIN,TOTAL 0.7 mg/dL (0.2-1.3); BLOOD UREA NITROGEN 8 mg/dL (7-20); CALCIUM 8.7 mg/dL (8.4-10.2); CARBON DIOXIDE 29 mmol/L (22-30); CHLORIDE 105 mmol/L (98-107); GLUCOSE 95 mg/dL (75-110); POTASSIUM 4.4 mmol/L (3.6-5.0); TOTAL PROTEIN 6.1 g/dL (6.3-8.2)
[2020-07-07 07:41] LABS: C-REACTIVE PROTEIN 122.5 mg/L (<10.0)
[2020-07-07 07:54] LABS: ERYTHROCYTE SEDIMENTATION RATE 60 mm/hr (0-20)
[2020-07-07] MEDS ORDERED: NORMAL SALINE 500 ML IV ONE (09:33)
[2020-07-07] MEDS ORDERED: HYDROMORPHONE HCL INJ/PF 2 MG/ML AMPULE IV ONE (09:37)
--- NOTE | 2020-07-07 12:05 | ER Document Report ---
Doctor's Note Notes: 07/07/20 12:04 Patient examined approximately at noon. She is resting comfortably in the room with no complaints. She is reading a book. I informed the patient that there is still no bed available at [facility]. I informed the patient that I have received a bed at [facility]. Patient states that she is willing to go to [facility].
--- NOTE | 2020-07-07 13:45 | RADIOLOGY REPORT (SQ) ---
EXAM DESCRIPTION: U/S RETROPERITON (RENAL/AORTA) IMAGES COMPLETED DATE/TIME: 07/07/2020 12:57 pm REASON FOR STUDY: evaluate kidneys COMPARISON: None. TECHNIQUE: Dynamic and static grayscale images acquired of the kidneys and bladder and recorded on P ACS. Additional selected color Doppler and spectral images recorded. LIMITATIONS: None. FINDINGS: RIGHT KIDNEY: Normal size, 12.4 cm. Normal echogenicity. No solid or suspicious masses. No hydronephrosis. No calcifications. LEFT KIDNEY: Normal size, 10.2 cm. Normal echogenicity. No solid or suspicious masses. No hydronephr osis. No calcifications. BLADDER: No masses. Ureteral jets are not seen. OTHER FINDINGS: No other significant finding. IMPRESSION: NORMAL RENAL AND BLADDER ULTRASOUND. TECHNICAL DOCUMENTATION: JOB ID: [id number] 2010 [employer]- All Rights Reserved Reading location - IP/workstation name: [email or web address]
[2020-07-07 14:17] VITALS: BP 101/69
== END 2020-07-07 14:30 | disposition short-term general hospital (02) ==
LOC: ER 23:55
DX: N28.0 Ischemia and infarction of kidney (principal); R10.9 Unspecified abdominal pain; R50.9 Fever, unspecified; R11.0 Nausea; R10.31 Right lower quadrant pain; K94.20 Gastrostomy complication, unspecified; Z88.8 Allergy status to other drugs, medicaments and biological substances; Z79.899 Other long term (current) drug therapy
CPT/HCPCS: 96376; 99285; 96361; 96374; 96375; 36415; 83690; 85025; 85652; 85610; 85730; 81025; 86140; 80053; 81001; 76770; J1200; J1885; J1170 ×2; J7040

== ENCOUNTER 2020-08-24 15:46 | Emergency (ER) | payer OTHER ==
[2020-08-24 16:11] LABS: ABSOLUTE LYMPHOCYTES (AUTO) 1.3 10^3/uL (0.5-4.7); ABSOLUTE MONOCYTES (AUTO) 0.4 10^3/uL (0.1-1.4); ABSOLUTE NEUT (AUTO) 6.4 10^3/uL (1.7-8.2); BASOPHILS % (AUTO) 0.4 % (0-2); EOSINOPHILS % (AUTO) 0.2 % (0-6); HEMATOCRIT 41.1 % (36.0-47.0); HEMOGLOBIN 14.6 g/dL (12.0-15.5); LYMPHOCYTES % (AUTO) 15.8 % (13-45); MEAN CORPUSCULAR HEMOGLOBIN 31.2 pg (27.0-33.4); MEAN CORPUSCULAR HGB CONC 35.6 g/dL (32.0-36.0); MEAN CORPUSCULAR VOLUME 88 fl (80-97); MONOCYTES % (AUTO) 4.6 % (3-13); PLATELET COUNT 274 10^3/uL (150-450); RED BLOOD COUNT 4.68 10^6/uL (3.72-5.28); RED CELL DISTRIBUTION WIDTH 14.1 % (11.5-14.0); TOTAL CELLS COUNTED % (AUTO) 100 %; WHITE BLOOD COUNT 8.1 10^3/uL (4.0-10.5)
[2020-08-24 16:29] LABS: ALBUMIN 4.7 g/dL (3.5-5.0); ALKALINE PHOSPHATASE 66 U/L (38-126); ANION GAP 11 (5-19); ASPARTATE AMINO TRANSFERASE 32 U/L (14-36); BILIRUBIN,DIRECT 0.2 mg/dL (0.0-0.4); BILIRUBIN,TOTAL 1.7 mg/dL (0.2-1.3); BLOOD UREA NITROGEN 10 mg/dL (7-20); CARBON DIOXIDE 23 mmol/L (22-30); CHLORIDE 103 mmol/L (98-107); CREATINE KINASE 201 U/L (30-135); GLUCOSE 73 mg/dL (75-110); POTASSIUM 3.8 mmol/L (3.6-5.0); TOTAL PROTEIN 7.7 g/dL (6.3-8.2)
[2020-08-24 16:40] LABS: CREATINE KINASE MB 0.65 ng/mL (<4.55)
[2020-08-24 16:42] LABS: TROPONIN I < 0.012 ng/mL
--- NOTE | 2020-08-24 16:49 | ER Document Report ---
ED Medical Screen (RME) - General Chief Complaint: Chest Pain Stated Complaint: CHEST PAIN Time Seen by Provider: 08/24/20 16:42 Primary Care Provider: TRAN CHRIS PA-C [Primary Care Provider] - Follow up as needed TRAVEL OUTSIDE OF THE [place] IN LAST 30 DAYS: No - HPI Notes: 08/24/20 16:49 30-year-old female with past medical history for crest syndrome, lupus, ASD, renal infarct to the emergency department via EMS with complaints of chest pain that began suddenly at about 230 this afternoon. She states she was driving for a follow-up appointment with her primary care physician Dr. Ibarra when she states she kind of blurred on her vision immediately had chest pain, shortness of breath, and diaphoresis. She states she called Dr. Ibarra's office and they sent EMS to come get her. They evaluated her in the office quickly but decided that she needed to come to the emergency department so they had EMS bring her here. She states that her chest continues to hurt. She is no longer short of breath or diaphoretic. She states that she just recently got out of the [facility] when she was found to have a renal infarction. She states that she did not have any chest pain at that time. However she was found to have an ASD. She does not have a plan for repair of that. She is currently on 2 separate blood thinners. She is taking Plavix and Eliquis. I performed a brief medical screening exam on the patient determined that the patient needs further evaluation and management by main side provider. I have placed initial orders to help expedite care. - Related Data Allergies/Adverse Reactions: aspirin [Aspirin] Allergy (Verified 08/24/20 16:41) Anaphylaxis morphine [Morphine] Allergy (Verified 08/24/20 16:41) Anaphylaxis Past Medical History - Social History Frequency of alcohol use: None Drug Abuse: None - Past Medical History Cardiac Medical History: Denies: Hx Coronary Artery Disease, Hx Heart Attack, Hx Hypertension Pulmonary Medical History: Denies: Hx Asthma, Hx Bronchitis, Hx COPD, Hx Pneumonia Neurological Medical History: Reports: Hx Migraine. Denies: Hx Cerebrovascular Accident, Hx Seizures Renal/ Medical History: Denies: Hx Peritoneal Dialysis Musculoskeltal Medical History: Denies Hx Arthritis Traumatic Medical History: Reports: Hx Fractures Past Surgical History: Reports: Hx Abdominal Surgery - Hernia repair, Hx Orthopedic Surgery - right clavicle. Denies: Hx Hysterectomy - Immunizations Immunizations up to date: Yes Hx Diphtheria, Pertussis, Tetanus Vaccination: Yes Physical Exam - Vital signs Vitals: Temp Pulse Resp BP Pulse Ox 98.2 F 76 16 96/56 L 96 08/24/20 16:04 08/24/20 16:04 08/24/20 16:04 08/24/20 16:04 08/24/20 16:04 Course - Vital Signs Vital signs: Temp Pulse Resp BP Pulse Ox 98.2 F 76 16 96/56 L 96 08/24/20 16:04 08/24/20 16:04 08/24/20 16:04 08/24/20 16:04 08/24/20 16:04 - Laboratory Result Diagrams: 08/24/20 15:35 08/24/20 15:35 Laboratory results interpreted by me: 08/24/20 08/24/20 15:35 15:35 RDW 14.1 H Seg Neutrophils % 79.0 H Sodium 136.6 L Glucose 73 L Total Bilirubin 1.7 H Creatine Kinase 201 H Doctor's Discharge - Discharge Referrals: TRAN CHRIS PA-C [Primary Care Provider] - Follow up as needed
--- NOTE | 2020-08-24 18:14 | RADIOLOGY REPORT (SQ) ---
EXAM DESCRIPTION: CHEST 2 VIEWS IMAGES COMPLETED DATE/TIME: 08/24/2020 5:30 pm REASON FOR STUDY: chest pain COMPARISON: 09/05/2018 EXAM PARAMETERS: NUMBER OF VIEWS: two views TECHNIQUE: Digital Frontal and Lateral radiographic views of the chest acquired. RADIATION DOSE: NA LIMITATIONS: none FINDINGS: LUNGS AND PLEURA: No opacities, masses or pneumothorax. No pleural effusion. MEDIASTINUM AND HILAR STRUCTURES: No masses or contour abnormalities. HEART AND VASCULAR STRUCTURES: Heart normal size. No evidence for failure. BONES: No acute findings. HARDWARE: None in the chest. OTHER: No other significant finding. IMPRESSION: NO ACUTE RADIOGRAPHIC FINDING IN THE CHEST. TECHNICAL DOCUMENTATION: JOB ID: [id number] 2010 [employer]- All Rights Reserved Reading location - IP/workstation name: [email or web address]
--- NOTE | 2020-08-24 18:59 | EKG REPORT ---
SEVERITY:- NORMAL ECG - SINUS RHYTHM : Confirmed by: Royce Morales MD 24-Aug-2020 18:58:18
--- NOTE | 2020-08-24 19:34 | ER Document Report ---
ED General - General Chief Complaint: Chest Pain Stated Complaint: CHEST PAIN Time Seen by Provider: 08/24/20 16:42 Primary Care Provider: TRAN CHRIS PA-C [Primary Care Provider] - Follow up as needed TRAVEL OUTSIDE OF THE [place] IN LAST 30 DAYS: No - HPI Notes: Patient is a 30-year-old female with a history of crest syndrome, lupus, recent renal infarct who presents to the emergency department for evaluation of chest pain, shortness of breath, diaphoresis. The patient was actually driving to her primary care provider's office for an appointment. While in route she started having a chest pain that she described as a tightness. She points to her upper sternal area with radiation into her neck. She states she became short of breath and diaphoretic. She was able to eventually get to her primary care provider's office. They did an EKG which she states was only fast, and called EMS to have her transported to the hospital. The patient states her pain is improved significantly. She is never really had any symptoms like that in the past. She has been taking all of her medications as prescribed. - Related Data Allergies/Adverse Reactions: aspirin [Aspirin] Allergy (Verified 08/24/20 16:41) Anaphylaxis morphine [Morphine] Allergy (Verified 08/24/20 16:41) Anaphylaxis Home Medications: Dilaudid, Plavix, Eliquis, ibuprofen, doxycycline, sumatriptan Past Medical History - General Information source: Patient - Social History Smoking Status: Never Smoker Frequency of alcohol use: None Drug Abuse: None Family History: Reviewed & Not Pertinent, Other - Mother with lupus - Past Medical History Cardiac Medical History: Reports: Other - Atrial septal defect, mitral valve annular calcification Denies: Hx Coronary Artery Disease, Hx Heart Attack, Hx Hypertension Pulmonary Medical History: Denies: Hx Asthma, Hx Bronchitis, Hx COPD, Hx Pneumonia Neurological Medical History: Reports: Hx Migraine. Denies: Hx Cerebrovascular Accident, Hx Seizures Renal/ Medical History: Reports: Other - renal infarction. Denies: Hx Peritoneal Dialysis Musculoskeletal Medical History: Denies Hx Arthritis, Reports Hx Systemic Lupus Erythematosus, Reports Other - Crest syndrome Skin Medical History: Reports Hx Psoriasis Traumatic Medical History: Reports: Hx Fractures Past Surgical History: Reports: Hx Abdominal Surgery - Hernia repair, Hx Orthopedic Surgery - right clavicle. Denies: Hx Hysterectomy - Immunizations Immunizations up to date: Yes Hx Diphtheria, Pertussis, Tetanus Vaccination: Yes Review of Systems - Review of Systems Constitutional: See HPI EENT: No symptoms reported Cardiovascular: See HPI Respiratory: See HPI Gastrointestinal: No symptoms reported Genitourinary: No symptoms reported Musculoskeletal: No symptoms reported Skin: No symptoms reported Neurological/Psychological: No symptoms reported -: Yes All other systems reviewed and negative Physical Exam - Vital signs Vitals: Temp Pulse Resp BP Pulse Ox 98.2 F 76 16 96/56 L 96 08/24/20 16:04 08/24/20 16:04 08/24/20 16:04 08/24/20 16:04 08/24/20 16:04 - Notes Notes: This is a very pleasant 30-year-old female who appears her stated age, no acute distress. Vital signs reviewed, please refer to chart. Head is normocephalic, atraumatic. Pupils equal round, reactive to light. Neck is supple without meningismus. Heart is regular rate and rhythm. Lungs are clear to auscultation bilaterally. Abdomen is soft, nontender, normoactive bowel sounds throughout. Extremities without cyanosis, clubbing. Posterior calves are nontender. Peripheral pulses are equal. Skin is warm and dry. She has circular lesions noted to the anterior shins, scaling, consistent with psoriatic flare. Patient is awake, alert, neurological exam is nonfocal. Course - Re-evaluation Re-evalutation: 08/24/20 19:34 Patient presents to the emergency department for evaluation. Laboratory investigations were ordered as through triage. Patient has a normal EKG, first set of cardiac enzymes is undetectable. Her laboratory investigations are largely unremarkable. The patient is feeling significantly improved. Awaiting repeat troponin. The patient does, however, have risk factor for pulmonary embolus. Despite being on Eliquis and Plavix, I am inclined to perform a CT angiogram to rule out pulmonary embolus in this high-risk patient. She is currently stable, we will continue to monitor. 08/24/20 20:33 Patient's repeat troponin is unremarkable. Awaiting read on CTA. Patient remained stable, heart rate in the 60s, oxygenating 99% on room air with a respiratory rate of 17. 08/24/20 20:58 CTA is unremarkable. Patient remained stable. She states she is very hungry, is anxious to go home. I will been discharged the patient. She is to follow-up closely with Dr. Ibarra's office tomorrow. She understands if her pain worsens, or if she develops new or concerning symptoms of any sort, she is to return immediately to the emergency department for reevaluation. - Vital Signs Vital signs: Temp Pulse Resp BP Pulse Ox 98.2 F 76 16 109/66 96 08/24/20 16:04 08/24/20 16:04 08/24/20 19:30 08/24/20 16:53 08/24/20 16:04 - Laboratory Result Diagrams: 08/24/20 15:35 08/24/20 15:35 Laboratory results interpreted by me: 08/24/20 08/24/20 15:35 15:35 RDW 14.1 H Seg Neutrophils % 79.0 H Sodium 136.6 L Glucose 73 L Total Bilirubin 1.7 H Creatine Kinase 201 H - Diagnostic Test Radiology reviewed: Reports reviewed Radiology results interpreted by me: 08/24/20 20:58 Chest X-Ray 08/24/20 16:43 IMPRESSION: NO ACUTE RADIOGRAPHIC FINDING IN THE CHEST. Chest/Abdomen CTA 08/24/20 19:10 IMPRESSION: No CT evidence of acute pulmonary embolism. - EKG Interpretation by Me Additional EKG results interpreted by me: 08/24/20 19:35 Sinus mechanism with a rate of 77 bpm. Normal axis and intervals. No acute ST changes concerning for ischemia or infarction. Discharge - Discharge Clinical Impression: Chest pain Qualifiers: Chest pain type: unspecified Qualified Code(s): R07.9 - Chest pain, unspecified Condition: Stable Disposition: HOME, SELF-CARE Instructions: Chest Pain of Unclear Cause ([facility]) Additional Instructions: No clear cause was identified for your chest pain today. Your EKG, cardiac enzymes, and CT angiogram of your chest were all unremarkable today. Please continue to take your home medications as prescribed. Follow-up with Dr. Ibarra tomorrow. If you develop worsening or new concerning symptoms of any sort, please return immediately to the emergency department for reevaluation. Referrals: TRAN CHRIS PA-C [Primary Care Provider] - Follow up as needed
--- NOTE | 2020-08-24 20:41 | RADIOLOGY REPORT (SQ) ---
EXAM DESCRIPTION: CT CHEST WITH INTRAVENOUS CONTRAST CLINICAL HISTORY: Clinical concern for acute pulmonary embolism, presenting with shortness of breath COMPARISON: None available TECHNIQUE: CT of the chest was performed with intravenous contrast using pulmonary embolism protocol, followed by CTA of the pulmonary arterial vasculature, with coronal and sagittal reformats provided. The patient was injected with 75 mL Omnipaque [address] exam was performed according to our departmental dose-optimization program, which includes one or more of the following dose reduction techniques: automated exposure control, adjustment of the mA and/or kV according to patient size, and/or use of iterative reconstruction technique. FINDINGS: There are no filling defects in the main pulmonary trunk, first order or the visualized lower order branches of the bilateral pulmonary arteries, to suggest pulmonary embolism. There is no evidence of clinically significant thoracic aortic aneurysm or thoracic aortic dissection. There is no evidence of clinically significant pericardial effusion. There are no airspace infiltrates, pleural effusions or pneumothoraces in the visualized lung houser. There is no pathological axillary, supraclavicular, mediastinal or hilar lymphadenopathy. No suspicious lytic or blastic osseous lesions are identified. The visualized upper abdominal structures seen on the exam appear unremarkable. IMPRESSION: No CT evidence of acute pulmonary embolism.
[2020-08-24 21:23] VITALS: BP 104/62
== END 2020-08-24 21:27 | disposition home or self-care (01) ==
LOC: ER 15:46
DX: R07.9 Chest pain, unspecified (principal); R06.02 Shortness of breath; R61 Generalized hyperhidrosis; Z88.8 Allergy status to other drugs, medicaments and biological substances; Z79.01 Long term (current) use of anticoagulants; Z79.899 Other long term (current) drug therapy
CPT/HCPCS: 36415; 71046; 71275; 80053; 82550; 82553; 84484; 85025; 93005; 93010; 99285

== ENCOUNTER 2020-09-21 04:26 | Emergency (ER) | payer OTHER ==
[2020-09-21] MEDS ORDERED: RABIES VACCINE (PCEC)/PF 2.5 UNIT/1 ML KIT IM ONE (05:48)
[2020-09-21] MEDS ORDERED: RABIES IMMUNE GLOBULIN INJ/PF 300 UNIT/ML VIAL ONE (05:49)
[2020-09-21] MEDS ORDERED: AMOXICILLIN TR/POT CLAVULANATE 875-125 MG TAB ONE (05:49)
== END 2020-09-21 06:34 | disposition home or self-care (01) ==
LOC: ER 04:26
DX: S61.250A Open bite of right index finger without damage to nail, initial encounter (principal); W55.81XA Bitten by other mammals, initial encounter; Z20.3 Contact with and (suspected) exposure to rabies
CPT/HCPCS: 90471; 96372; 99283

== ENCOUNTER → 2020-10-08 | Outpatient (CLI) | payer OTHER ==
--- NOTE | 2020-10-08 13:05 | RADIOLOGY REPORT (SQ) ---
EXAM DESCRIPTION: CHEST 2 VIEWS IMAGES COMPLETED DATE/TIME: 10/08/2020 12:57 pm REASON FOR STUDY: (R05)COUGH COMPARISON: 08/24/2020 EXAM PARAMETERS: NUMBER OF VIEWS: two views TECHNIQUE: Digital Frontal and Lateral radiographic views of the chest acquired. RADIATION DOSE: NA LIMITATIONS: none FINDINGS: LUNGS AND PLEURA: No opacities, masses or pneumothorax. No pleural effusion. MEDIASTINUM AND HILAR STRUCTURES: No masses or contour abnormalities. HEART AND VASCULAR STRUCTURES: Heart normal size. No evidence for failure. BONES: No acute findings. HARDWARE: None in the chest. OTHER: No other significant finding. IMPRESSION: NO ACUTE RADIOGRAPHIC FINDING IN THE CHEST. TECHNICAL DOCUMENTATION: JOB ID: [id number] 2010 [employer]- All Rights Reserved Reading location - IP/workstation name: [email or web address]
== END ==
LOC: RAD 12:42
PROVIDERS: ATTEND Physician Assistant
DX: R05 Cough (principal)
CPT/HCPCS: 71046